=== PATIENT | male | born 1945 | race Caucasian/White ===

== ENCOUNTER 2020-12-07 10:48 | Outpatient (REF) | payer MEDICARE, SELFPAY ==
[2020-12-07 15:00] LABS: Prostate Specific Antigen 7.33 ng/mL (<0.05-4.0)
== END 2020-12-07 10:49 | disposition home or self-care (01) ==
LOC: HO.HMGCLDS 10:48
PROVIDERS: PCP Internal Medicine; Visit Provider Urology
DX: Z12.5 Encounter for screening for malignant neoplasm of prostate (principal); R97.20 Elevated prostate specific antigen [PSA]
CPT/HCPCS: 36415; 84153

== ENCOUNTER → 2020-12-11 10:42 | Outpatient (BNVA) | payer MEDICARE, SELFPAY | PROVIDERS: PCP Internal Medicine; Visit Provider Urology | DX: N40.0 Benign prostatic hyperplasia without lower urinary tract symptoms (principal); R97.20 Elevated prostate specific antigen [PSA] | CPT/HCPCS: 51798; 81002; 99212 ==

== ENCOUNTER 2021-04-04 08:26 | Outpatient (REF) | payer MEDICARE, SELFPAY ==
[2021-04-04 11:29] LABS: Hematocrit 45.7 % (42-52); Hemoglobin 14.8 g/dl (14.0-18.0); Mean Corpuscular HGB Conc 32.4 g/dl (31.0-36.0); Mean Corpuscular Hemoglobin 29.3 pg (27.0-33.0); Mean Corpuscular Volume 90.5 fL (80-98); Mean Platelet Volume 10.7 fL (9.4-12.4); Platelet Count 166 X10*3/uL (160-400); Red Blood Count 5.05 X10*6/uL (4.60-5.80); Red Cell Distribution Width 13.9 % (11.0-16.0); White Blood Count 10.3 X10*3/uL (4.8-10.8)
[2021-04-04 11:51] LABS: Alanine Aminotransferase 56 U/L (0-40); Albumin Level 4.1 g/dL (3.5-5.0); Alkaline Phosphatase 92 U/L (39-117); Anion Gap 16 (12-20); Aspartate Amino Transferase 77 U/L (5-37); Bilirubin Total 0.6 mg/dL (0.0-1.0); Blood Urea Nitrogen 25 mg/dL (9-16); Calcium 9.5 mg/dL (8.4-10.2); Carbon Dioxide 20 mmol/L (22-29); Chloride 108 mmol/L (96-108); Cholesterol 192 mg/dL; Estimated Glomerular Filt Rate > 60; Glucose Fasting 125 mg/dL (60-99); HDL Cholesterol 50 mg/dL; LDL Cholesterol Calculated 89 mg/dl; Potassium 4.7 mmol/L (3.3-5.1); Sodium 139 mmol/L (135-145); Total Protein 6.7 g/dL (6.5-8.0); Triglycerides 268 mg/dL
[2021-04-04 12:04] LABS: PSA,Total (Free>4and<10) 2.76 ng/mL (0.00-4.00)
[2021-04-04 12:13] LABS: Creatinine Urine 90.78 mg/dL; Microalbum/Creatinine Ratio Ur 37.4 ug/mg cr
[2021-04-04 12:17] LABS: Estimated Average Glucose 123 mg/dL; Hemoglobin A1c % 5.9 %
== END 2021-04-04 08:27 | disposition home or self-care (01) ==
LOC: HO.HMGCLDS 08:26
PROVIDERS: PCP Internal Medicine; Visit Provider Urology
DX: Z12.5 Encounter for screening for malignant neoplasm of prostate (principal); N13.8 Other obstructive and reflux uropathy; N40.1 Benign prostatic hyperplasia with lower urinary tract symptoms; R97.20 Elevated prostate specific antigen [PSA]; I12.9 Hypertensive chronic kidney disease with stage 1 through stage 4 chronic kidney disease, or unspecified chronic kidney disease; N18.30 Chronic kidney disease, stage 3 unspecified; M10.9 Gout, unspecified; E78.00 Pure hypercholesterolemia, unspecified
CPT/HCPCS: 36415; 80053; 80061; 82043; 83036; 84153; 85027

== ENCOUNTER → 2021-04-12 11:22 | Outpatient (BNVA) | payer MEDICARE, SELFPAY | PROVIDERS: PCP Internal Medicine; Visit Provider Urology | CPT/HCPCS: Q3014 ==

== ENCOUNTER → 2021-05-01 12:26 | Outpatient (BNVA) | payer MEDICARE, SELFPAY | PROVIDERS: Visit Provider Nurse Practitioner Family | DX: M10.9 Gout, unspecified (principal) | CPT/HCPCS: 99212 ==

== ENCOUNTER 2021-10-02 10:56 | Outpatient (REF) | payer MEDICARE, SELFPAY ==
[2021-10-02 14:27] LABS: PSA,Total (Free>4and<10) 2.88 ng/mL (0.00-4.00)
[2021-10-02 14:53] LABS: Uric Acid 5.5 mg/dL (3.4-7.0)
== END 2021-10-02 10:57 | disposition home or self-care (01) ==
LOC: HO.HMGCLDS 10:56
PROVIDERS: Nurse Practitioner Family; Visit Provider Urology
DX: Z12.5 Encounter for screening for malignant neoplasm of prostate (principal); N13.8 Other obstructive and reflux uropathy; N40.1 Benign prostatic hyperplasia with lower urinary tract symptoms; M10.9 Gout, unspecified
CPT/HCPCS: 36415; 84153; 84550

== ENCOUNTER → 2021-10-15 15:03 | Outpatient (BNVA) | payer MEDICARE, SELFPAY | PROVIDERS: PCP Internal Medicine; Visit Provider Urology | DX: R97.20 Elevated prostate specific antigen [PSA] (principal); N40.0 Benign prostatic hyperplasia without lower urinary tract symptoms | CPT/HCPCS: Q3014 ==

== ENCOUNTER 2022-04-16 08:28 | Outpatient (REF) | payer MEDICARE, SELFPAY ==
[2022-04-16 12:46] LABS: PSA,Total (Free>4and<10) 3.27 ng/mL (0.00-4.00)
== END 2022-04-16 08:29 | disposition home or self-care (01) ==
LOC: HO.HMGCLDS 08:28
PROVIDERS: PCP Internal Medicine; Visit Provider Urology
DX: N40.1 Benign prostatic hyperplasia with lower urinary tract symptoms (principal); N13.8 Other obstructive and reflux uropathy; Z12.5 Encounter for screening for malignant neoplasm of prostate
CPT/HCPCS: 36415; 84153

== ENCOUNTER → 2022-04-22 08:45 | Outpatient (BNVA) | payer MEDICARE, SELFPAY | PROVIDERS: PCP Internal Medicine; Visit Provider Urology | DX: N40.0 Benign prostatic hyperplasia without lower urinary tract symptoms (principal); R97.20 Elevated prostate specific antigen [PSA] | CPT/HCPCS: Q3014 ==

== ENCOUNTER → 2022-04-24 09:42 | Outpatient (BNVA) | payer MEDICARE, SELFPAY | PROVIDERS: PCP Internal Medicine; Visit Provider Nurse Practitioner Family | DX: M10.9 Gout, unspecified (principal) | CPT/HCPCS: 99212 ==

== ENCOUNTER 2022-07-23 08:20 | Outpatient (REF) | payer MEDICARE, SELFPAY ==
[2022-07-23 11:28] LABS: Hematocrit 48.5 % (42.0-52.0); Mean Corpuscular Hemoglobin 29.4 pg (27.0-33.0); Mean Corpuscular Volume 89.2 fL (80.0-98.0); Mean Platelet Volume 10.8 fL (9.4-12.4); Platelet Count 162 X10*3/uL (160-400); Red Blood Count 5.44 X10*6/uL (4.60-5.80); White Blood Count 10.6 X10*3/uL (4.8-10.8)
[2022-07-23 11:35] LABS: Blood Urea Nitrogen 32 mg/dL (9-16); Uric Acid 6.2 mg/dL (3.4-7.0)
[2022-07-23 11:41] LABS: Appearance Urine Clear; Color Urine Yellow; Glucose Urine UA Negative (Negative); Leukocyte Esterase Urine Negative (Negative); Nitrite Urine Negative (Negative); PH 5.5 (5.0-9.0); Urine Blood Negative (Negative); Urine Ketones Negative (Negative); Urine Protein Negative (Neg-Trace)
[2022-07-23 11:43] LABS: Alanine Aminotransferase 34 U/L (0-40); Albumin Level 4.3 g/dL (3.5-5.0); Alkaline Phosphatase 85 U/L (39-117); Anion Gap 15 (12-20); Aspartate Amino Transferase 37 U/L (5-37); Bilirubin Total 0.7 mg/dL (0.0-1.0); Blood Urea Nitrogen 31 mg/dL (9-16); Calcium 9.6 mg/dL (8.4-10.2); Carbon Dioxide 22 mmol/L (22-29); Chloride 109 mmol/L (96-108); Cholesterol 210 mg/dL; Estimated Glomerular Filt Rate 52; Glucose Fasting 126 mg/dL (60-99); HDL Cholesterol 50 mg/dL; LDL Cholesterol Calculated 116 mg/dl; Sodium 141 mmol/L (135-145); Triglycerides 221 mg/dL
[2022-07-23 11:46] LABS: Bacteria Urine None Seen (None Seen); Hyaline Casts Urine 0-2 /LPF (0-2); RBC Urine 0-2 /HPF (0-2); Squamous Epithelial Cell Urine 0-2 /HPF (0-2); WBC Urine 0-5 /HPF (0-5)
[2022-07-23 11:53] LABS: Estimated Average Glucose 128 mg/dL; Hemoglobin A1c % 6.1 %
== END 2022-07-23 08:21 | disposition home or self-care (01) ==
LOC: HO.HMGCLDS 08:20
PROVIDERS: Absent Provider Nurse Practitioner Family; PCP Internal Medicine; Visit Provider Internal Medicine
DX: M10.9 Gout, unspecified (principal); K76.0 Fatty (change of) liver, not elsewhere classified; E78.00 Pure hypercholesterolemia, unspecified
CPT/HCPCS: 36415; 80053; 80061; 81001; 83036; 84520; 84550; 85027

== ENCOUNTER 2022-09-02 09:54 | Outpatient (REF) | payer MEDICARE, SELFPAY ==
[2022-09-02 12:22] LABS: Alanine Aminotransferase 27 U/L (0-40); Albumin Level 4.1 g/dL (3.5-5.0); Alkaline Phosphatase 91 U/L (39-117); Anion Gap 14 (12-20); Aspartate Amino Transferase 35 U/L (5-37); Bilirubin Total 0.6 mg/dL (0.0-1.0); Blood Urea Nitrogen 33 mg/dL (9-16); Calcium 9.3 mg/dL (8.4-10.2); Carbon Dioxide 22 mmol/L (22-29); Chloride 107 mmol/L (96-108); Estimated Glomerular Filt Rate 46; Glucose Random 132 mg/dL (60-115); Potassium 4.7 mmol/L (3.3-5.1); Sodium 138 mmol/L (135-145); Total Protein 6.6 g/dL (6.5-8.0); Uric Acid 3.5 mg/dL (3.4-7.0)
== END 2022-09-02 09:55 | disposition home or self-care (01) ==
LOC: HO.HMGCLDS 09:54
PROVIDERS: PCP Internal Medicine; Visit Provider Nurse Practitioner Family
DX: M10.9 Gout, unspecified (principal)
CPT/HCPCS: 36415; 80053; 84550

== ENCOUNTER → 2022-09-05 09:54 | Outpatient (BNVA) | payer MEDICARE, SELFPAY | PROVIDERS: PCP Internal Medicine; Visit Provider Nurse Practitioner Family | DX: M10.9 Gout, unspecified (principal); M25.511 Pain in right shoulder; Z79.899 Other long term (current) drug therapy | CPT/HCPCS: 99212 ==

== ENCOUNTER 2022-10-13 09:21 | Outpatient (REF) | payer MEDICARE, SELFPAY ==
[2022-10-13 12:39] LABS: Prostate Specific Antigen 2.35 ng/mL (<0.05-4.0)
== END 2022-10-13 09:22 | disposition home or self-care (01) ==
LOC: HO.HMGCLDS 09:21
PROVIDERS: PCP Internal Medicine; Visit Provider Urology
DX: R97.20 Elevated prostate specific antigen [PSA] (principal); Z12.5 Encounter for screening for malignant neoplasm of prostate
CPT/HCPCS: 36415; 84153

== ENCOUNTER → 2022-10-22 09:01 | Outpatient (BNVA) | payer MEDICARE, SELFPAY | PROVIDERS: PCP Internal Medicine; Visit Provider Urology | DX: N40.0 Benign prostatic hyperplasia without lower urinary tract symptoms (principal); R97.20 Elevated prostate specific antigen [PSA] | CPT/HCPCS: Q3014 ==

== ENCOUNTER 2022-11-27 11:27 | Outpatient (REF) | payer MEDICARE, SELFPAY ==
--- NOTE | ~2022-11-27 | XR_ITS ---
EXAMINATION: XR SHOULDER, RIGHT CLINICAL INFORMATION: Right shoulder. COMPARISON: None available. TECHNIQUE: AP external rotation, Grashey, scapular Y, and axillary views of the right shoulder. FINDINGS: Mild elevation of the right humeral head most metatarsal likely reflects underlying rotator cuff pathology. Mild to moderate acromioclavicular degenerative changes. XR/XR shoulder RT min 2V IMPRESSION: Mild elevation of the right humeral head most metatarsal likely reflects underlying rotator cuff pathology. Mild to moderate acromioclavicular degenerative changes.
[2022-11-27 14:28] LABS: Blood Urea Nitrogen 28 mg/dL (9-16); Estimated Glomerular Filt Rate > 60; Uric Acid 4.2 mg/dL (3.4-7.0)
== END 2022-11-27 11:28 | disposition home or self-care (01) ==
LOC: HO.HMGCX 11:27
PROVIDERS: PCP Internal Medicine; Visit Provider Nurse Practitioner Family
DX: M10.9 Gout, unspecified (principal); M25.511 Pain in right shoulder
CPT/HCPCS: 36415; 73030; 82565; 84520; 84550

== ENCOUNTER → 2022-12-12 10:42 | Outpatient (BNVA) | payer MEDICARE, SELFPAY | PROVIDERS: PCP Internal Medicine; Visit Provider Nurse Practitioner Family | DX: M10.9 Gout, unspecified (principal); M25.511 Pain in right shoulder | CPT/HCPCS: 99212 ==

== ENCOUNTER 2023-02-17 08:13 | Outpatient (REF) | payer MEDICARE, SELFPAY ==
[2023-02-17 12:16] LABS: Estimated Average Glucose 123 mg/dL; Hemoglobin A1c % 5.9 %
[2023-02-17 12:35] LABS: Alanine Aminotransferase 29 U/L (0-40); Albumin Level 4.1 g/dL (3.5-5.0); Alkaline Phosphatase 75 U/L (39-117); Anion Gap 13 (12-20); Aspartate Amino Transferase 38 U/L (5-37); Bilirubin Total 0.7 mg/dL (0.0-1.0); Blood Urea Nitrogen 33 mg/dL (9-16); Calcium 9.7 mg/dL (8.4-10.2); Carbon Dioxide 21 mmol/L (22-29); Chloride 108 mmol/L (96-108); Cholesterol 199 mg/dL; Estimated Glomerular Filt Rate > 60; Glucose Random 122 mg/dL (60-115); HDL Cholesterol 49 mg/dL; LDL Cholesterol Calculated 104 mg/dl; Potassium 4.5 mmol/L (3.3-5.1); Sodium 137 mmol/L (135-145); Triglycerides 234 mg/dL
[2023-02-17 12:41] LABS: Blood Urea Nitrogen 33 mg/dL (9-16); Uric Acid 5.6 mg/dL (3.4-7.0)
== END 2023-02-17 08:14 | disposition home or self-care (01) ==
LOC: HO.HMGCLDS 08:13
PROVIDERS: Nurse Practitioner Family; PCP Internal Medicine; Visit Provider Internal Medicine
DX: I12.9 Hypertensive chronic kidney disease with stage 1 through stage 4 chronic kidney disease, or unspecified chronic kidney disease (principal); N18.30 Chronic kidney disease, stage 3 unspecified; M10.9 Gout, unspecified; R73.9 Hyperglycemia, unspecified
CPT/HCPCS: 36415; 80053; 80061; 83036; 84520; 84550

== ENCOUNTER 2023-02-24 13:53 | Outpatient (AMB) | payer MEDICARE, SELFPAY ==
[2023-02-24 13:54] VITALS: BP 126/78; PULSE 80; O2SAT 97; BMI 29.3
--- NOTE | 2023-02-24 13:54 | A.OFFPC_ITS ---
Vital Signs 02/24/23 13:54 Height 5 ft 10 in Weight 204 lb BMI 29.3 BP 126/78 Blood Pressure Location Lt brachial Position Sitting Pulse 80 Pulse Source Pulse Oximeter Pulse Oximetry (%) 97 Oxygen Delivery Method Room Air Intake Visit Reasons: R total shoulder replacement-03/02 Intake Note: Pt is here today for a pre op visit. Pt is having R total shoulder replacement on 03/02/[address] Mcgraw. Allergies No Known Allergies [No Known Allergies*] Allergy (Verified 02/24/23 13:56) Medication List - Last Reconciled 02/24/23 by Jodi Roland MD allopurinol 300 mg PO DAILY aspirin 81 mg PO DAILY finasteride 5 mg PO DAILY 90 days flu vac 2020 [id number](PF) 60 mcg (15 mcg x 4)/0.5 mL mL IM ibuprofen TAKE 1 TABLET BY MOUTH TWICE A DAY lisinopril 10 mg PO DAILY omega 4-khd-fex-fish oil 60-90-500 mg (Fish Oil) 1 cap PO DAILY simvastatin 40 mg PO DAILY Tobacco use date assessed: 01/08/23 Dental Screening Dental Screen Date: 02/24/23 Did you have a dental visit in the last 12 months?: Yes Did you have a dental problem in the last 6 months where you did not have access to dental care?: No Was dental information given to patient?: Patient has dentist HPI R total shoulder replacement-03/02 HPI Details Pt presents for preop R shoulder replacement surgery. HTN and hyperlipid, are stable on meds. PFSH Medical History BPH (benign prostatic hyperplasia) CKD (chronic kidney disease), stage III Fatty liver Gout Hypercholesterolemia Hypertension Melanoma Rotator cuff disorder Surgical History H/O colonoscopy History of ankle surgery History of knee surgery Melanoma of back Family History Father Cerebral aneurysm Mother No problems noted. Son No problems noted. Daughter No problems noted. Social History Housing: House Alcohol intake: current Alcohol intake frequency: a few times a week Patient Tobacco Use Status: Never used Tobacco e-Cigarette/Vaping Use: Never Used Current occupational status: retired Cognitive needs: No Hearing needs: No Vision needs: Yes Questionnaire PHQ-9 Over the last 2 weeks, how often have you been bothered by any of the following problems? 1. Little interest or pleasure in doing things: not at all 2. Feeling down, depressed, or hopeless: not at all 3. Trouble falling or staying asleep, or sleeping too much: not at all 4. Feeling tired or having little energy: not at all 5. Poor appetite or overeating: not at all 6. Feeling bad about yourself - or that you are a failure or have let yourself or your family down: not at all 7. Trouble concentrating on things, such as reading the newspaper or watching television: not at all 8. Moving or speaking so slowly that other people could have noticed. Or the opposite - being so fidgety or restless that you have been moving around a lot more than usual: not at all 9. Thoughts that you would be better off or of hurting yourself in some way: not at all Total score: 0 Depression Screening Interpretation: Negative Source: Developed by Drs. Scottie You, Kassy Wells, Tyrese Buckner and colleagues, with an educational nany from [employer]. Thrive Questionnaire Date Thrive assessed: 02/24/23 I am a: Patient What is your living situation today?: I have a steady place to live Within the past 12 months, did the food you bought not last and you didn't have the money to get more?: Never true Within the past 12 months, did you worry whether your food would run out before you got money to buy more?: Never true Do you have trouble paying for medicines?: No Do you have trouble getting transportation to medical appointments?: No Do you have trouble paying your heating and electricity bill?: No Do you have trouble taking care of your child, family member or friend?: No Do you have trouble with day-to-day activities such as bathing, preparing meals, shopping, managing finances, etc.?: No Are you currently unemployed and looking for a job?: No Are you interested in more education?: No Please select the resources that you would like help with: None Currently or been in a relationship where the following occur: no concerns reported LINDEN-7 AMB Questionnaire LINDEN-7 Date LINDEN - 7 assessed: 02/24/23 Feeling nervous, anxious, or on edge: 0 = Not at all Not being able to stop or control worryin = Not at all Worrying too much about different things: 0 = Not at all Trouble relaxin = Not at all Being so restless that it is hard to sit still: 0 = Not at all Becoming easily annoyed or irritable: 0 = Not at all Feeling afraid as if something awful might happen: 0 = Not at all Total LINDEN-7 score (0-4 normal; 5-9 mild; 10-14 moderate; 15-21 severe): 0 Source: Developed by Drs. Scottie You, Kassy Wells, Tyrese Buckner and colleagues, with an educational nany from [employer]. Review of Systems Const All systems reviewed & are unremarkable except as noted in HPI and below Reports no additional complaints Eyes Reports no additional complaints ENT Reports no additional complaints Card Reports no additional complaints Resp Reports no additional complaints GI Reports no additional complaints Reports no additional complaints Physical exam (Primary Care) Vital Signs: Last Vital Signs Pulse 80 02/24/23 13:54 BP 126/78 02/24/23 13:54 Pulse Ox 97 02/24/23 13:54 Oxygen Delivery Method Room Air 02/24/23 13:54 BMI result Body Mass Index 29.3 Tobacco/Smoking Status: Tobacco use Status Tobacco use date assessed 01/08/23 02/24/23 14:02 Patient Tobacco Use Status Never used Tobacco 02/24/23 14:02 e-Cigarette/Vaping Use Never Used 02/24/23 14:02 PHQ-9: PHQ-9 Score PHQ-9: Total score 0 02/24/23 14:12 Depression Screening Interpretation: Negative Thrive Assessment: Date of Thrive Assessment Date Thrive assessed 02/24/23 02/24/23 14:12 Currently or been in a relationship where the following occur: no concerns reported Const General: no acute distress HENMT Head: Yes normal to inspection Ears: hearing grossly normal bilaterally Face and sinus: Yes normal facial exam Mouth: Normal oral and palatal mucosa present Throat: Yes posterior oropharynx normal Eyes General: appearance normal, both eyes and all related structures Neck Neck: Yes no lymphadenopathy Resp Effort & Inspection: normal respiratory effort Auscultation: clear to auscultation bilaterally Cardio Rhythm: regular rhythm Heart sounds: S1 normal heart sound present and S2 normal heart sound present GI Inspection: Yes normal to inspection Palpation (GI): Soft to palpation Percussion: Yes normal to percussion Auscultation: normal bowel sounds Assessment and Plan Assessment & Plan (1) 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: Code(s): M19.111 - Post-traumatic osteoarthritis, right shoulder; S46.001S - Unspecified injury of muscle(s) and tendon(s) of the rotator cuff of right shoulder, sequela Plan: pt is medically cleared for surgery (2) Hypertension: Code(s): I10 - Essential (primary) hypertension Plan: Continue lisinopril, EKG showed normal sinus rhythm no ST-T changes (3) Hypercholesterolemia: Code(s): E78.00 - Pure hypercholesterolemia, unspecified Plan: Continue statin (4) Hyperglycemia: Comment: A1C 5.9 02/22 Code(s): R73.9 - Hyperglycemia, unspecified Plan: Continue ADA diet regular exercise, and weight lost. Follow-up in July with fasting labs before Orders: Orders Comprehensive [place]. Panel Fast 5 Months E78.00 - Pure hypercholesterolemia, unspecified, I10 - Essential (primary) hypertension, R73.9 - Hyperglycemia, unspecified Hemoglobin A1c 5 Months E78.00 - Pure hypercholesterolemia, unspecified, I10 - Essential (primary) hypertension, R73.9 - Hyperglycemia, unspecified Lipid Panel 5 Months E78.00 - Pure hypercholesterolemia, unspecified, I10 - Essential (primary) hypertension, R73.9 - Hyperglycemia, unspecified Microalbumin, Random (w Creat) 5 Months E78.00 - Pure hypercholesterolemia, unspecified, I10 - Essential (primary) hypertension, R73.9 - Hyperglycemia, unspecified Complete Blood Count Auto Diff 5 Months E78.00 - Pure hypercholesterolemia, unspecified, I10 - Essential (primary) hypertension, R73.9 - Hyperglycemia, unspecified Coding Level of Care Code Est Pt Level 4 (45774) Diagnoses 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
== END 2023-02-24 14:43 | disposition home or self-care (01) ==
PROVIDERS: PCP Internal Medicine; Visit Provider Internal Medicine
DX: M19.111 Post-traumatic osteoarthritis, right shoulder (principal); S46.001S Unspecified injury of muscle(s) and tendon(s) of the rotator cuff of right shoulder, sequela; I10 Essential (primary) hypertension; E78.00 Pure hypercholesterolemia, unspecified; R73.9 Hyperglycemia, unspecified
CPT/HCPCS: 99214

== ENCOUNTER 2023-04-20 10:40 | Outpatient (REF) | payer MEDICARE, SELFPAY ==
[2023-04-20 14:43] LABS: Prostate Specific Antigen 2.42 ng/mL (<0.05-4.0)
== END 2023-04-20 10:41 | disposition home or self-care (01) ==
LOC: HO.HMGCLDS 10:40
PROVIDERS: PCP Internal Medicine; Visit Provider Urology
DX: Z12.5 Encounter for screening for malignant neoplasm of prostate (principal); N40.0 Benign prostatic hyperplasia without lower urinary tract symptoms
CPT/HCPCS: 36415; 84153

== ENCOUNTER 2023-04-28 11:10 | Outpatient (AMB) | payer MEDICARE, SELFPAY ==
--- NOTE | 2023-04-28 11:12 | MHC.OFFVIS ---
Intake Intake Visit Reasons: 6M PSA(set) Intake Note: Patient is Present for Follow Up PSA Urology Medication: Finasteride Antibiotic Allergies: None Blood Thinners: Aspirin Pharmacy: [facility] Allergies No Known Allergies [No Known Allergies*] Allergy (Verified 04/28/23 11:13) Medication List - Last Reconciled 04/28/23 by Stuart Prather MD allopurinol 300 mg PO DAILY aspirin 81 mg PO DAILY finasteride 5 mg PO DAILY 90 days flu vac 2020 [id number](PF) 60 mcg (15 mcg x 4)/0.5 mL mL IM ibuprofen TAKE 1 TABLET BY MOUTH TWICE A DAY lisinopril 10 mg PO DAILY omega 3-ket-rez-fish oil 60-90-500 mg (Fish Oil) 1 cap PO DAILY simvastatin 40 mg PO DAILY HPI HPI Comments History of Present Illness Details Scottie GREEN is a very pleasant male. He is a patient of Dr. Roland. He is seen for the following urologic conditions. - BPH - elevated PSA Telemedicine evaluation 15 minute consultation Doximity morris Video attempted PSA stabilized at 2.4 Continue with finasteride Six month follow-up Prior biopsy 2004 Large prostate on exam Elevated PSA/Abnormal JOSIAS: He presents for Further evaluation for elevated PSA Large prostate on exam Has had elevated PSA he says for around 20 years. Current management is observation. Laboratory investigations include a total PSA evaluation for September 2014 4.8, January 2015 3.6, October 2016 5.6, 05/19 4.8, 11/18 4.6, 11/19 4.7, 11/20 5.6, 12/21 7.3, 04/23 2.7, 10/22 2.8, 04/24 3.3, 10/23 2.4, 04/25 2/4 Individualized Prostate Cancer Risk Calculator 5-10% high risk, Would like to continue with observation and understands and accepts the risks of a possible delay in diagnosis. Symptoms include incomplete emptying, intermittency, and are stable. Therapeutic plan will be - PSA for 6 months [facility] Medical History Fatty liver BPH (benign prostatic hyperplasia) Gout Rotator cuff disorder CKD (chronic kidney disease), stage III Melanoma Hypercholesterolemia Hypertension Surgical History H/O colonoscopy Melanoma of back History of ankle surgery History of knee surgery Family History Father Cerebral aneurysm Mother No problems noted. Son No problems noted. Daughter No problems noted. Social History Housing: House Alcohol intake: current Alcohol intake frequency: a few times a week Patient Tobacco Use Status: Never used Tobacco e-Cigarette/Vaping Use: Never Used Current occupational status: retired Cognitive needs: No Hearing needs: No Vision needs: Yes Review of Systems Const All systems reviewed & are unremarkable except as noted in HPI and below Reports no additional complaints Resp Reports no additional complaints GI Reports no additional complaints Reports as per HPI Musc Reports no additional complaints Physical Exam Telemedicine evaluation Appropriate responses Regular breathing rate and rhythm HEENT Head: Yes normal to inspection Ears: hearing grossly normal bilaterally Eyes General: appearance normal, both eyes and all related structures Neck Neck: Yes normal visual inspection Chest Chest palpation & inspection: normal inspection of the chest Resp Effort & Inspection: normal respiratory effort and able to speak in complete sentences Assessment & Plan Assessment & Plan (1) BPH (benign prostatic hyperplasia): Comment: Dr. Prather Code(s): N40.0 - Benign prostatic hyperplasia without lower urinary tract symptoms Qualifiers: Lower urinary tract symptom presence: symptoms present Lower urinary tract symptom detail: weak urinary stream Qualified Code(s): N40.1 - Benign prostatic hyperplasia with lower urinary tract symptoms; R39.12 - Poor urinary stream (2) Elevated PSA: Code(s): R97.20 - Elevated prostate specific antigen [PSA] Plan Continued effective emptying PSA remaining low Orders: Orders Prostate Specific Antigen 6 Months N40.0 - Benign prostatic hyperplasia without lower urinary tract symptoms Medications: Refilled finasteride 5 mg PO DAILY 90 tabs 1RF 90 days N13.8 - Other obstructive and reflux uropathy, N40.1 - Benign prostatic hyperplasia with lower urinary tract symptoms, R33.9 - Retention of urine, unspecified, R97.20 - Elevated prostate specific antigen [PSA] Patient Instructions: Imaging studies, laboratory and physical exam results were discussed and reviewed in detail. No major barriers to patient understanding were identified. An opportunity to ask questions regarding the treatment plan was provided. All questions were answered. The patient expressed understanding and agreement with the above treatment plan. The patient is aware they should contact our office by phone for worsening of their current condition or the appearance of new urologic symptoms. Compliance is encouraged with any medications and followup testing that is ordered. It is a privilege to participate in the urologic care of your patient. If you have any questions or concerns regarding treatment for the above conditions, or other urologic issues, please do not hesitate to contact me. The office telephone contact is [phone]. This note is constructed using voice recognition software. While every effort has been made to ensure accuracy software developer manager errors may have been included. Yours sincerely, Dr Stuart Prather MD, D[facility] - Urology Providers of Expert, Compassionate Care for the Genitourinary System Telehealth Telehealth Location of provider rendering services: practice address Location of patient: address on file Patient Identification confirmed using: Name, : Yes Telehealth method: video Patient verbally consented to treatment: Yes Patient verbally consented to billing insurance company: Yes Patient informed of any privacy concerns related to visit: Yes Coding Level of Care Code Tele Est Pt Level 3 (86123) Diagnoses Benign prostatic hyperplasia with weak urinary stream N40.1; R39.12 Lower urinary tract symptom presence: symptoms present Lower urinary tract symptom detail: weak urinary stream Elevated PSA R97.20
== END 2023-04-28 12:04 | disposition home or self-care (01) ==
LOC: HO.HUSH 11:10
PROVIDERS: PCP Internal Medicine; Visit Provider Urology
DX: N40.1 Benign prostatic hyperplasia with lower urinary tract symptoms (principal); R39.12 Poor urinary stream; R97.20 Elevated prostate specific antigen [PSA]
CPT/HCPCS: 99213

== ENCOUNTER → 2023-04-28 11:10 | Outpatient (BNVA) | payer MEDICARE, SELFPAY | PROVIDERS: PCP Internal Medicine; Visit Provider Urology ==

== ENCOUNTER 2023-05-29 15:47 | Outpatient (AMB) | payer MEDICARE, SELFPAY ==
[2023-05-29 15:58] VITALS: BP 114/66; PULSE 87; TEMP 36.5; O2SAT 95; BMI 29.0
--- NOTE | 2023-05-29 15:58 | MHC.OFFVIS ---
Intake Vital Signs 05/29/23 15:58 Height 5 ft 10 in Weight 202 lb 2.622 oz BMI 29.0 BP 114/66 Blood Pressure Location Rt brachial Position Sitting Pulse 87 Pulse Source Pulse Oximeter Temp 97.7 F Temp Source Skin Pulse Oximetry (%) 95 Intake Visit Reasons: gout Intake Note: Pt last seen by Irina 12/12/22, presents today for follow up and lab results. He was referred to [facility] for shoulder pain. S/P rotator cuff surgery, records in chart. No gout in the last 15-20 years, however reports numbing in right foot s/p ankle fusion many years ago Manager Sas Required: No Accompanied by: Self / Same As Patient Allergies No Known Allergies [No Known Allergies*] Allergy (Verified 05/29/23 16:01) Medication List - Last Reconciled 05/29/23 by Shanice Ortiz MD allopurinol 300 mg PO DAILY aspirin 81 mg PO DAILY finasteride 5 mg PO DAILY 90 days flu vac 2020 [id number](PF) 60 mcg (15 mcg x 4)/0.5 mL mL IM ibuprofen TAKE 1 TABLET BY MOUTH TWICE A DAY lisinopril 10 mg PO DAILY omega 1-acg-gwn-fish oil 60-90-500 mg (Fish Oil) 1 cap PO DAILY simvastatin 40 mg PO DAILY HPI HPI Comments History of Present Illness Details 77-year-old male with gout returns for follow-up. He was last seen by Yin Aguila . On allopurinol 300 mg daily. No gout flares for 15 years. Patient states that he had right shoulder arthroplasty a few months ago. States that his right shoulder is much better overall. States that since his right ankle arthrodesis in 2015 he has had almost no sensation in his right ankle and foot. This does interfere with his gait. [facility] Medical History Fatty liver BPH (benign prostatic hyperplasia) Gout Rotator cuff disorder CKD (chronic kidney disease), stage III Melanoma Hypercholesterolemia Hypertension Surgical History H/O colonoscopy Melanoma of back History of ankle surgery History of knee surgery Family History Father Cerebral aneurysm Mother No problems noted. Son No problems noted. Daughter No problems noted. Social History Household Members: Spouse Housing: House Alcohol intake: current Alcohol intake frequency: a few times a week Patient Tobacco Use Status: Never used Tobacco e-Cigarette/Vaping Use: Never Used Current occupational status: retired Cognitive needs: No Hearing needs: No Vision needs: Yes Review of Systems Musc Reports numbness Neuro Reports numbness Physical Exam Vital Signs: Last Vital Signs Temp 97.7 F 05/29/23 15:58 Pulse 87 05/29/23 15:58 BP 114/66 05/29/23 15:58 Pulse Ox 95 05/29/23 15:58 BMI result Body Mass Index 29.0 Const General: cooperative, healthy appearing and comfortable Nutritional Appearance: overweight Orientation/consciousness: patient oriented x3 Limitations: no limitations HEENT Head: Yes normocephalic and Yes atraumatic Resp Effort & Inspection: normal respiratory effort and able to speak in complete sentences Skin General skin exam: no rashes or lesions noted Neuro Other: Significantly reduced sensation to right ankle and right foot. 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 On allopurinol 300 mg daily. Has not had any gout flares in more than 15 years. Most recent uric acid level 5.6 which is at target. Continue allopurinol 300 mg daily. Refill Labs before next visit in 6 months (2) Peripheral neuropathy: Code(s): G62.9 - Polyneuropathy, unspecified Qualifiers: Peripheral neuropathy type: polyneuropathy, other Qualified Code(s): G62.89 - Other specified polyneuropathies Plan: Significant right ankle and foot numbness since his right ankle arthrodesis in 2016. Will check an EMG/NCV of lower extremities to further evaluate. Plan I spent 26 minutes reviewing patient's chart, evaluating patient, ordering diagnostic workup, counseling patient and documenting in the chart Orders: Orders Basic Metabolic Panel 6 Months M10.9 - Gout, unspecified Uric Acid 6 Months M10.9 - Gout, unspecified NE electromyogram (EMG) Today G62.9 - Polyneuropathy, unspecified Medications: Refilled allopurinol 300 mg PO DAILY 90 tabs 1RF Coding Level of Care Code Est Pt Level 4 (59139) Diagnoses Idiopathic chronic gout of multiple sites with tophus M1A.09X1 Gout site: multiple sites Gout etiology: idiopathic Chronicity: chronic Presence of tophus: with tophus Other polyneuropathy G62.89 Peripheral neuropathy type: polyneuropathy, other
== END 2023-05-29 16:34 | disposition home or self-care (01) ==
PROVIDERS: PCP Internal Medicine; Visit Provider Student in an Organized Health Care Education/Training Program
DX: M1A.09X1 Idiopathic chronic gout, multiple sites, with tophus (tophi) (principal); G62.89 Other specified polyneuropathies
CPT/HCPCS: 99214

== ENCOUNTER → 2023-05-29 15:47 | Outpatient (BNVA) | payer MEDICARE, SELFPAY | PROVIDERS: PCP Internal Medicine; Visit Provider Student in an Organized Health Care Education/Training Program | DX: M1A.09X1 Idiopathic chronic gout, multiple sites, with tophus (tophi) (principal); G62.89 Other specified polyneuropathies | CPT/HCPCS: 99212 ==

== ENCOUNTER 2023-07-08 15:21 | Outpatient (REF) | payer MEDICARE, SELFPAY ==
--- NOTE | 2023-07-08 15:24 | EMG_ITS ---
Chief complaint: History of right ankle fusion 2016 and that area as been numb since then. Worsening of numbness this year to the point that he cannot walk, feels padding on the bottom of feet. Denies back pain. Reason for referral: Evaluate for neuropathy Referred by: Dr. Ortiz Procedure done: Bilateral lower extremity NCS/EMG Precautions and/or limitations: None The limb temperature was monitored continuously and remained between 32-36 degrees C during the performance of the NCS. Nerve Conduction Studies Anti Sensory Summary Table ?Stim Site NR Onset (ms) Norm Onset (ms) Peak (ms) Norm Peak (ms) O-P Amp (?V) Norm O-P Amp Site1 Site2 Delta-0 (ms) Dist (cm) Karlo (m/s) Norm Karlo (m/s) Left Sural Anti Sensory (Lat Mall) Calf NR <4.0 >5.0 Calf Lat Mall 14.0 Right Sural Anti Sensory (Lat Mall) Calf NR <4.0 >5.0 Calf Lat Mall 14.0 Motor Summary Table ?Stim Site NR Onset (ms) Norm Onset (ms) O-P Amp (mV) Norm O-P Amp iAmp (mV) Amp (1st) (%) Site1 Site2 Delta-0 (ms) Dist (cm) Karlo (m/s) Norm Karlo (m/s) Right Peroneal Motor (Ext Dig Brev) Ankle ? 12.3 <4.0 1.0 >2.5 1.0 100.0 Ankle Ext Dig Brev 12.3 0.0 B Fib ? 20.7 0.5 0.9 50.0 B Fib Ankle 8.4 30.0 36 >40 Poplt ? 22.7 0.3 0.4 30.0 Poplt B Fib 2.0 6.0 30 >40 Left Tibial Motor (Abd Gan Brev) Ankle ? 9.0 <5 0.4 >2.5 0.7 100.0 Ankle Abd Gan Brev 9.0 0.0 Knee ? 21.9 0.3 0.5 75.0 Knee Ankle 12.9 39.0 30 >40 Right Tibial Motor (Abd Gan Brev) Ankle ? 6.8 <5 0.7 >2.5 1.0 100.0 Ankle Abd Gan Brev 6.8 0.0 Knee NR Knee Ankle 0.0 >40 EMG ?Side Muscle Nerve Root Ins Act Fibs Psw Amp Dur Poly Recrt Int Pat Comment Right AbdHallucis MedPlantar S1-2 Nml Nml Nml Nml Nml 0 Nml Complete Right AntTibialis Dp Br Peron L4-5 Nml Nml Nml Nml Nml 0 Nml Complete Right PostTibialis Tibial L5, S1 Nml Nml Nml Nml Nml 0 Nml Complete Right MedGastroc Tibial S1-2 Nml Nml Nml Nml Nml 0 Nml Complete Right VastusMed Femoral L2-4 Nml Nml Nml Nml Nml 0 Nml Complete Left AbdHallucis MedPlantar S1-2 Nml Nml Nml Nml Nml 0 Nml Complete Left AntTibialis Dp Br Peron L4-5 Nml Nml Nml Incr Incr 0 Nml Complete Left PostTibialis Tibial L5, S1 Nml Nml Nml Nml Nml 0 Nml Complete Left MedGastroc Tibial S1-2 Nml Nml Nml Nml Nml 0 Nml Complete Left VastusMed Femoral L2-4 Nml Nml Nml Nml Nml 0 Nml Complete Paraspinal EMG ?Side Muscle Nerve Root Ins Act Fibs Psw Comment Right Lumbar Upper Rami Nml Nml Nml Right Lumbar Mid Rami Nml Nml Nml Right Lumbar Lower Rami Nml Nml Nml Left Lumbar Upper Rami Nml Nml Nml Left Lumbar Mid Rami Nml Nml Nml Left Lumbar Lower Rami Incr 1+ 1+ FINDINGS: Right peroneal showed very small amplitudes, prolonged distal latency, and slowed conduction velocity. Right tibial nerve showed very small amplitude distally and absent proximally. Left tibial nerve showed small amplitude as well.. Bilateral sural nerves absent. Concentric needle EMG was performed in selected muscles of the bilateral lower extremity and lumbar paraspinals. Study revealed Signs of electric abnormalities as shown in the table below. Left TA showed increased amplitude and duration. Left lumbar paraspinals showed increased insertional activity, PSWs and fibrillations. IMPRESSION: 1. This is an abnormal study. 2. There is electrodiagnostic findings suggestive for distal sensorimotor polyneuropathy, axonal features. 3. There is also electrodiagnostic findings suggestive for left subacute/chronic L5-S1 radiculopathy. CLINICAL COMMENT: Further clinical correlation recommended. Thank you for your kind referral. Bhavna Mills MD, D[facility]K Board Certified, [place] [employer] and [employer] (ABPMR) Board Certified, [place] Board of Electrodiagnostic [employer] (ABEM) CODIN [id number] x 2 MTDD
== END 2023-07-08 15:22 | disposition home or self-care (01) ==
LOC: HO.NEURO 15:21
PROVIDERS: PCP Internal Medicine; Visit Provider Student in an Organized Health Care Education/Training Program
DX: G57.51 Tarsal tunnel syndrome, right lower limb (principal); G62.9 Polyneuropathy, unspecified
CPT/HCPCS: 95886; 95909

== ENCOUNTER → 2023-07-08 15:24 | Outpatient (BNV) | payer MEDICARE, SELFPAY | PROVIDERS: PCP Internal Medicine; Visit Provider Physical Medicine & Rehabilitation | DX: G62.89 Other specified polyneuropathies (principal) | CPT/HCPCS: 95886; 95909 ==

== ENCOUNTER 2023-10-06 09:54 | Outpatient (AMB) | payer MEDICARE, SELFPAY ==
--- NOTE | 2023-10-06 10:02 | MHC.OFFVIS ---
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 Allergies No Known Allergies [No Known Allergies*] Allergy (Verified 10/06/23 10:07) HPI HPI Comments History of Present Illness Details 78 y/o male patient presents for new in-person for right foot numbness. Pt reports he had ankle fusion, and did operation in 2016. Pt also reports he had nerve block on his right knee and has numbness form ankle to foot since the nerve block done. Has mild numbness on her left foot, but not bad as his right one. Pt reports his toes get tingles at night. He can't walk with barefoot, he can lose balance without sleeper due to the numbness. He walks 1.5 miles a day. He drinks a bottle of beer every night. Pt had NCS/EMG of bilateral lower extremities done. 1. This is an abnormal study. 2. There is electrodiagnostic findings suggestive for distal sensorimotor polyneuropathy, axonal features. 3. There is also electrodiagnostic findings suggestive for left subacute/chronic L5-S1 radiculopathy. [facility] Medical History Fatty liver BPH (benign prostatic hyperplasia) Gout Rotator cuff disorder CKD (chronic kidney disease), stage III Melanoma Hypercholesterolemia Hypertension Surgical History H/O colonoscopy Melanoma of back History of ankle surgery History of knee surgery Family History Father Cerebral aneurysm Mother No problems noted. Son No problems noted. Daughter No problems noted. Social History Household Members: Spouse Housing: House Alcohol intake: current Alcohol intake frequency: a few times a week Patient Tobacco Use Status: Never used Tobacco e-Cigarette/Vaping Use: Never Used Current occupational status: retired Cognitive needs: No Hearing needs: No Vision needs: Yes Review of Systems Const All systems reviewed & are unremarkable except as noted in HPI and below Physical Exam Vital Signs: Last Vital Signs Pulse 68 10/06/23 10:10 BP 134/80 10/06/23 10:10 Pulse Ox 96 10/06/23 10:10 Oxygen Delivery Method Room Air 10/06/23 10:10 BMI result Body Mass Index 29.7 Const General: cooperative Nutritional Appearance: overweight Orientation/consciousness: patient oriented x3 Neck Neck: Yes full ROM and Yes supple Resp Effort & Inspection: normal respiratory effort and able to speak in complete sentences Neuro General: patient oriented x3, gait normal and moves all extremities Cranial nerves: Yes CN's II-XII intact bilaterally Cognition (Neuro): normal cognition Gait exam (Neuro): Normal gait present Motor exam (neuro): 5/5 motor strength present throughout Deep tendon reflexes (DTR's): Right patellar reflex intensity grade: 2+ and Left patellar reflex intensity grade: 2+ Psych Appearance: grossly normal Mental Status: mental status grossly normal Speech and movement: Normal speech and movement present Affect: normal affect Attitude: cooperative Assessment & Plan Assessment & Plan (1) Peripheral neuropathy: Code(s): G62.9 - Polyneuropathy, unspecified Qualifiers: Peripheral neuropathy type: polyneuropathy, other Qualified Code(s): G62.89 - Other specified polyneuropathies Plan Pt was evaluated and discussed the plan of care with Dr. Dennis. Will check labs for reversible causes of neuropathy. Advised patient to try alpha lipoic acid 600 mg daily. Advised patient to reduce the alcohol intake. Orders: Orders Vitamin B12 and Folate 10/06/23 G62.9 - Polyneuropathy, unspecified TSH reflex Free T4 10/06/23 G62.9 - Polyneuropathy, unspecified Medications: New alpha lipoic acid 600 mg PO DAILY 30 caps 6RF 30 days Coding Level of Care Code New Pt Level 3 (02784) Diagnoses Other polyneuropathy G62.89 Peripheral neuropathy type: polyneuropathy, other
[2023-10-06 10:10] VITALS: BP 134/80; PULSE 68; O2SAT 96; BMI 29.7
== END 2023-10-06 10:42 | disposition home or self-care (01) ==
PROVIDERS: PCP Internal Medicine; Visit Provider Nurse Practitioner Family
DX: G62.89 Other specified polyneuropathies (principal)
CPT/HCPCS: 99203

== ENCOUNTER → 2023-10-06 09:54 | Outpatient (BNVA) | payer MEDICARE, SELFPAY | PROVIDERS: PCP Internal Medicine; Visit Provider Nurse Practitioner Family | DX: G62.89 Other specified polyneuropathies (principal) | CPT/HCPCS: 99202 ==

== ENCOUNTER 2023-10-06 10:43 | Outpatient (REF) | payer MEDICARE, SELFPAY ==
[2023-10-06 14:28] LABS: Prostate Specific Antigen 1.88 ng/mL (<0.05-4.0); TSH reflex Free T4 4.29 uIU/mL (0.32-4.0)
[2023-10-06 17:25] LABS: Free T4 (Free Thyroxine) 0.76 ng/dL (0.71-1.85)
[2023-10-07 11:54] LABS: Folate 11.8 ng/mL (> or = 4.0); Vitamin B12 561 pg/mL (200-900)
== END 2023-10-06 10:44 | disposition home or self-care (01) ==
LOC: HO.HKASLDS 10:43
PROVIDERS: Nurse Practitioner Family; Urology; Visit Provider Internal Medicine Nephrology
DX: Z12.5 Encounter for screening for malignant neoplasm of prostate (principal); G62.9 Polyneuropathy, unspecified; N40.0 Benign prostatic hyperplasia without lower urinary tract symptoms
CPT/HCPCS: 36415; 82607; 82746; 84153; 84439; 84443

== ENCOUNTER 2023-10-28 08:52 | Outpatient (AMB) | payer MEDICARE, SELFPAY ==
--- NOTE | 2023-10-28 08:52 | A.OFFVIS_ITS ---
Intake Intake Visit Reasons: 6M PSA(set) Intake Note: Patient presents today for a follow up on PSA Meds- Finasteride Allergies to Antibiotic- No Known Allergies Blood thinner: Aspirin Flue Cleaner Required: No Allergies No Known Allergies [No Known Allergies*] Allergy (Verified 10/28/23 08:53) HPI HPI Comments History of Present Illness Details Scottie GREEN is a very pleasant male. He is a patient of Dr. Roland. He is seen for the following urologic conditions. - BPH - elevated PSA Telemedicine evaluation 15 minute consultation [employer] morris Video attempted PSA continued to fall 1.8 Continue with finasteride Six month follow-up Prior biopsy 2004 Large prostate on exam Elevated PSA/Abnormal JOSIAS: He presents for Further evaluation for elevated PSA Large prostate on exam Has had elevated PSA he says for around 20 years. Current management is observation. Laboratory investigations include a total PSA evaluation for September 2014 4.8, January 2015 3.6, October 2016 5.6, 05/19 4.8, 11/18 4.6, 11/19 4.7, 11/20 5.6, 12/21 7.3, 04/23 2.7, 10/22 2.8, 04/24 3.3, 10/23 2.4, 04/25 2/4, 10/24 1.8 Individualized Prostate Cancer Risk Calculator 5-10% high risk, Would like to continue with observation and understands and accepts the risks of a possible delay in diagnosis. Symptoms include incomplete emptying, intermittency, and are stable. Therapeutic plan will be - PSA for 6 months [facility] Medical History Fatty liver BPH (benign prostatic hyperplasia) Gout Rotator cuff disorder CKD (chronic kidney disease), stage III Melanoma Hypercholesterolemia Hypertension Surgical History H/O colonoscopy Melanoma of back History of ankle surgery History of knee surgery Family History Father Cerebral aneurysm Mother No problems noted. Son No problems noted. Daughter No problems noted. Social History Household Members: Spouse Housing: House Alcohol intake: current Alcohol intake frequency: a few times a week Patient Tobacco Use Status: Never used Tobacco e-Cigarette/Vaping Use: Never Used Current occupational status: retired Cognitive needs: No Hearing needs: No Vision needs: Yes Review of Systems Const All systems reviewed & are unremarkable except as noted in HPI and below Reports no additional complaints Resp Reports no additional complaints GI Reports no additional complaints Reports as per HPI Musc Reports no additional complaints Physical Exam Telemedicine evaluation Appropriate responses Regular breathing rate and rhythm HEENT Head: Yes normal to inspection Ears: hearing grossly normal bilaterally Eyes General: appearance normal, both eyes and all related structures Neck Neck: Yes normal visual inspection Chest Chest palpation & inspection: normal inspection of the chest Resp Effort & Inspection: normal respiratory effort and able to speak in complete sentences Assessment & Plan Assessment & Plan (1) BPH (benign prostatic hyperplasia): Comment: Dr. Prather Code(s): N40.0 - Benign prostatic hyperplasia without lower urinary tract symptoms Qualifiers: Lower urinary tract symptom presence: symptoms present Lower urinary tract symptom detail: weak urinary stream Qualified Code(s): N40.1 - Benign prostatic hyperplasia with lower urinary tract symptoms; R39.12 - Poor urinary stream (2) Elevated PSA: Code(s): R97.20 - Elevated prostate specific antigen [PSA] Plan 6m f/u psa Orders: Orders Prostate Specific Antigen 6 Months N40.1 - Benign prostatic hyperplasia with lower urinary tract symptoms, R39.12 - Poor urinary stream Medications: Refilled finasteride 5 mg PO DAILY 90 days 90 tabs 1RF N13.8 - Other obstructive and reflux uropathy, N40.1 - Benign prostatic hyperplasia with lower urinary tract symptoms, R33.9 - Retention of urine, unspecified, R97.20 - Elevated prostate specific antigen [PSA] Patient Instructions: Imaging studies, laboratory and physical exam results were discussed and reviewed in detail. No major barriers to patient understanding were identified. An opportunity to ask questions regarding the treatment plan was provided. All questions were answered. The patient expressed understanding and agreement with the above treatment plan. The patient is aware they should contact our office by phone for worsening of their current condition or the appearance of new urologic symptoms. Compliance is encouraged with any medications and followup testing that is ordered. It is a privilege to participate in the urologic care of your patient. If you have any questions or concerns regarding treatment for the above conditions, or other urologic issues, please do not hesitate to contact me. The office telephone contact is [phone]. This note is constructed using voice recognition software. While every effort has been made to ensure accuracy wall crane operator errors may have been included. Yours sincerely, Dr Stuart Prather MD, [facility] - Urology Providers of Expert, Compassionate Care for the Genitourinary System Telehealth Telehealth Location of provider rendering services: practice address Location of patient: address on file Patient Identification confirmed using: Name, : Yes Telehealth method: video Patient verbally consented to treatment: Yes Patient verbally consented to billing insurance company: Yes Patient informed of any privacy concerns related to visit: Yes Coding Level of Care Code Tele Est Pt Level 3 (30922) Diagnoses Benign prostatic hyperplasia with weak urinary stream N40.1; R39.12 Lower urinary tract symptom presence: symptoms present Lower urinary tract symptom detail: weak urinary stream Elevated PSA R97.20
== END 2023-10-28 10:46 | disposition home or self-care (01) ==
LOC: HO.HUSH 08:52
PROVIDERS: PCP Internal Medicine; Visit Provider Urology
DX: N40.1 Benign prostatic hyperplasia with lower urinary tract symptoms (principal); R39.12 Poor urinary stream; R97.20 Elevated prostate specific antigen [PSA]
CPT/HCPCS: 99213

== ENCOUNTER → 2023-10-28 08:52 | Outpatient (BNVA) | payer MEDICARE, SELFPAY | PROVIDERS: PCP Internal Medicine; Visit Provider Urology ==

== ENCOUNTER 2024-01-06 10:35 | Outpatient (REF) | payer MEDICARE, SELFPAY ==
[2024-01-06 14:36] LABS: Anion Gap 13 (12-20); Blood Urea Nitrogen 35 mg/dL (9-16); Calcium 9.5 mg/dL (8.4-10.2); Carbon Dioxide 21 mmol/L (22-29); Chloride 109 mmol/L (96-108); Estimated Glomerular Filt Rate 51; Glucose Random 154 mg/dL (60-115); Potassium 4.7 mmol/L (3.3-5.1); Sodium 138 mmol/L (135-145); Uric Acid 4.9 mg/dL (3.4-7.0)
== END 2024-01-06 10:36 | disposition home or self-care (01) ==
LOC: HO.HMGCLDS 10:35
PROVIDERS: PCP Internal Medicine; Visit Provider Student in an Organized Health Care Education/Training Program
DX: M10.9 Gout, unspecified (principal)
CPT/HCPCS: 36415; 80048; 84550

== ENCOUNTER 2024-01-14 13:54 | Outpatient (AMB) | payer MEDICARE, SELFPAY ==
[2024-01-14 13:56] VITALS: BP 118/64; PULSE 96; O2SAT 96; BMI 29.7
--- NOTE | 2024-01-14 13:56 | MHC.OFFVIS ---
Vital Signs 01/14/24 13:56 Height 5 ft 10 in Weight 206 lb 12.697 oz BMI 29.7 BP 118/64 Blood Pressure Location Rt brachial Position Sitting Pulse 96 Pulse Source Pulse Oximeter Pulse Oximetry (%) 96 Oxygen Delivery Method Room Air Intake Visit Reasons: Gout Intake Note: Patient last seen 05/29/23 presents today for follow up and test results. Disaster Recovery Consultant Required: No Accompanied by: Self / Same As Patient Allergies No Known Allergies [No Known Allergies*] Allergy (Verified 01/14/24 14:03) Medication List - Last Reconciled 01/14/24 by Shanice Ortiz MD allopurinol 300 mg PO DAILY alpha lipoic acid 600 mg PO DAILY 30 days aspirin 81 mg PO DAILY finasteride 5 mg PO DAILY 90 days flu vac 2020 [id number](PF) 60 mcg (15 mcg x 4)/0.5 mL mL IM ibuprofen TAKE 1 TABLET BY MOUTH TWICE A DAY lisinopril 10 mg PO DAILY omega [id number] oil 60-90-500 mg (Fish Oil) 1 cap PO DAILY simvastatin 40 mg PO DAILY HPI Comments Details: 78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 He was last seen 05/2023. On allopurinol 300 mg daily. No gout flares for 16 years. States that he is doing reasonably well overall. He was evaluated by neurologist for peripheral neuropathy and started on alpha lipoic acid. He states that it does help with shooting pains that he gets at night. He was quite busy with his who recently had surgery for stomach cancer. She is now discharged home [facility] Medical History Fatty liver BPH (benign prostatic hyperplasia) Gout Rotator cuff disorder CKD (chronic kidney disease), stage III Melanoma Hypercholesterolemia Hypertension Surgical History H/O colonoscopy Melanoma of back History of ankle surgery History of knee surgery Family History Father Cerebral aneurysm Mother No problems noted. Son No problems noted. Daughter No problems noted. Social History Household Members: Spouse Housing: House Alcohol intake: current Alcohol intake frequency: a few times a week Patient Tobacco Use Status: Never used Tobacco e-Cigarette/Vaping Use: Never Used Current occupational status: retired Cognitive needs: No Hearing needs: No Vision needs: Yes Review of Systems Musc Reports numbness Neuro Reports numbness Physical Exam Vital Signs: Last Vital Signs Pulse 96 01/14/24 13:56 BP 118/64 01/14/24 13:56 Pulse Ox 96 01/14/24 13:56 Oxygen Delivery Method Room Air 01/14/24 13:56 BMI result Body Mass Index 29.7 Const General: cooperative, healthy appearing and comfortable Nutritional Appearance: overweight Orientation/consciousness: patient oriented x3 Limitations: no limitations HEENT Head: Yes normocephalic and Yes atraumatic Resp Effort & Inspection: normal respiratory effort and able to speak in complete sentences Skin General skin exam: no rashes or lesions noted Neuro General: patient oriented x3 Extrem Other: 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 On allopurinol 300 mg daily. Has not had any gout flares in more than 15-16 years. Most recent uric acid level 4.9 which is at target. Continue allopurinol 300 mg daily. 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
== END 2024-01-14 14:25 | disposition home or self-care (01) ==
PROVIDERS: PCP Internal Medicine; Visit Provider Student in an Organized Health Care Education/Training Program
DX: M1A.09X1 Idiopathic chronic gout, multiple sites, with tophus (tophi) (principal); G62.89 Other specified polyneuropathies
CPT/HCPCS: 99213

== ENCOUNTER → 2024-01-14 13:54 | Outpatient (BNVA) | payer MEDICARE, SELFPAY | PROVIDERS: PCP Internal Medicine; Visit Provider Student in an Organized Health Care Education/Training Program | DX: M1A.09X1 Idiopathic chronic gout, multiple sites, with tophus (tophi) (principal); G62.89 Other specified polyneuropathies | CPT/HCPCS: 99212 ==

== ENCOUNTER 2024-02-09 11:54 | Outpatient (AMB) | payer MEDICARE, SELFPAY ==
--- NOTE | 2024-02-09 12:13 | AM.OFFVISMDC ---
Intake Vital Signs 02/09/24 12:19 Height 5 ft 10 in Weight 204 lb BMI 29.3 BP 128/66 Blood Pressure Location Rt brachial Position Sitting Pulse 74 Pulse Source Pulse Oximeter Pulse Oximetry (%) 96 Oxygen Delivery Method Room Air Intake Visit Reasons: AWV Allergies No Known Allergies [No Known Allergies*] Allergy (Verified 02/09/24 12:21) Medication List - Last Reconciled 02/09/24 by Jodi Roland MD allopurinol 300 mg PO DAILY alpha lipoic acid 600 mg PO DAILY 30 days aspirin 81 mg PO DAILY finasteride 5 mg PO DAILY 90 days flu vac 2020 [id number](PF) 60 mcg (15 mcg x 4)/0.5 mL mL IM ibuprofen TAKE 1 TABLET BY MOUTH TWICE A DAY lisinopril 10 mg PO DAILY omega 5-ngo-wdr-fish oil 60-90-500 mg (Fish Oil) 1 cap PO DAILY simvastatin 40 mg PO DAILY HPI AWV HPI Details Initiated the conversation about Advanced Directives. Advanced Directives help? patients prepare for current and future decisions about their medical treatment? and place of care. Discussed with patient that it is a process where a patients? current condition and prognosis are reviewed, their wishes for information? regarding their illness are elicited, and likely medical dilemmas are presented? and options discussed. The form can be amended as needed, reviewed yearly and? make changes as needed IPPE/AWV ? year old presents? for her ? Annual? Wellness Visit, initial visit.? Medical / Social History Reviewed? Past Medical History ?Yes? . ? [place]? of Care / Care Team list updated ?Yes . ? Surgical/Hospitalization? History ?Yes . ? Current Medications? (including OTC and supplements) ?Yes . ? Family History ?Yes? . ? Tobacco? Control form ?Yes . ? AUDIT-C (Alcohol use) form? ?Yes . ? Illicit drug use in Social? History ?Yes . ? Current diagnosis of? depression? ?No ? Appropriate PHQ2/PHQ9? completed ?Yes . ? Data entered by ?Medical? Skip Operator and reviewed by provider ? Fall Risk ? Fall? History? Have you had any falls with? injury in the past year? ?No . ? Have you had two or more? falls in the past year? ?No . ? Fall Risk Assessment: ?No? falls in the past year . ? HRA filled out by? the patient, reviewed by Provider and scanned. ? IPPE/AWV ? Balance? Romberg? ?Yes . ? Tandem? walk ?Yes . ? Walk and? Turn ?Yes . ? Rise from? sit to stand ?Yes . ?Vision? Corrective? lens ?Yes ? Vision? screen ? Up-to-date, has an appointment [] for vision? screening and glaucoma screening ?Hearing? Whisper? test ?pass .? Initiated the conversation about Advanced Directives. Advanced Directives help? patients prepare for current and future decisions about their medical treatment? and place of care. Discussed with patient that it is a process where a patients? current condition and prognosis are reviewed, their wishes for information? regarding their illness are elicited, and likely medical dilemmas are presented? and options discussed. The form can be amended as needed, reviewed yearly and? make changes as needed Written? Plan?Completed. See Patient? Documents. PENDING SALE TO [facility] Medical History (Updated 02/09/24 @ 13:05 by Jodi Roland MD) Hyperglycemia Fatty liver BPH (benign prostatic hyperplasia) Gout Rotator cuff disorder CKD (chronic kidney disease), stage III Melanoma Hypercholesterolemia Hypertension Surgical History H/O colonoscopy Melanoma of back History of ankle surgery History of knee surgery Family History Father Cerebral aneurysm Mother No problems noted. Son No problems noted. Daughter No problems noted. Social History Household Members: Spouse Housing: House Alcohol intake: current Alcohol intake frequency: a few times a week Patient Tobacco Use Status: Never used Tobacco e-Cigarette/Vaping Use: Never Used Current occupational status: retired Cognitive needs: No Hearing needs: No Vision needs: Yes Questionnaire Medicare Wellness Checkup [age] What gender do you identify with?: male During the past 4 weeks, how much have you been bothered by emotional problems such as feeling anxious, depressed, irritable, sad or downhearted, and blue?: not at all During the past 4 weeks, has your physical & emotional health limited your social activities with family, friends, neighbors, or groups?: not at all During the past 4 weeks, how much bodily pain have you generally had?: very mild pain During the past 4 weeks, was someone available to help you if you needed & wanted help?: no, not at all During the past 4 weeks, what was the hardest physical activity you could do for at least 2 minutes?: heavy Can you get to places out of walking distance without help? (For eg., can you travel alone on buses, taxis or drive your car?): Yes Can you go shopping for groceries or clothes without someone's help?: Yes Can you prepare your own meals?: Yes Can you do your housework without help?: Yes Because of any health problems, do you need the help of another person with your personal care needs such as eating, bathing, dressing or getting around the house?: No Can you handle your own money without help?: Yes During the past 4 weeks, how would you rate your health in general?: excellent During the past 4 weeks how have things been going for you?: very well; could hardly better Are you having difficulties driving your car?: no Do you always fasten your seat belt when you are in a car?: yes, usually During past 4 weeks, have you been bothered by the following: never: Falling or dizzy when standing up, Sexual problems?, Trouble eating well?, Teeth or denture problems?, Problems using the telephone? and Tiredness or fatigue? Have you fallen 2 or more times in the past year?: No Are you afraid of falling?: No Are you a smoker?: no During the past 4 weeks, how many drinks of wine, beer, or other alcoholic beverages did you have?: 6-9 drinks per week Do you exercise for about 20 minutes 3 or more times a week?: yes, most of the time Have you been given information to help with the following?: no: Hazards in your house that might hurt you? and no: Keeping track of your medications? How often do you have trouble taking medicines the way you have been told to take them?: I always take medicine as prescribed How confident are you that you can control & manage most of your health problems?: very confident What is your race?: White Mini Mental State Exam (MMSE) Orientation What is the (year) (season) (date) (day) (month)?: year, season, date, day and month Where are we (state) (county) (town or city) (hospital) (floor)?: state, county, town or city, hospital/clinic and floor Registration Name of 3 unrelated objects clearly and slowly, then ask patient to repeat all 3 of them. (1st repeat determines score. Make sure they can repeat all three): object 1, object 2 and object 3 Attention & Calculation (CHOOSE ONE) Spell WORLD backwards (DLROW): 5 letters Recall Ask patient to repeat the 3 items from question #3.: object 1, object 2 and object 3 Language Show patient a wristwatch & ask what it is. Repeat for pencil.: watch and pencil Ask the patient to repeat the phrase 'No ifs, ands, or buts' after you.: correct Ask the patient to 'take a piece of paper with their right hand' 'fold paper in half' 'place paper on floor': take paper in right hand, fold paper in half and place paper on floor Print the sentence 'CLOSE YOUR EYES' on a piece. If patient actually closes eyes then score.: followed written direction Give patient a blank piece of paper & ask to write a sentence. Score if it contains a noun & verb.: sentence contains subject and verb Score Score: 29 Activity of Daily Living Bathing - sponge bath, tub bath or shower: receives no assistance (gets in/out by self, if usual bathing means Dressing - getting clothes from closets & drawers, including inner/outer garments & fasteners.: gets clothes & gets completely dressed without help Toileting - going to the 'toilet room' for urine/bowel elimination & cleaning self/arranging clothes: goes to toilet room, cleans self, arranges clothes without help Transfer: moves in & out of bed and chair without help (may use support object) Continence: controls urination/bowel movements completely by self Feeding: feeds self without help Total Score: 0 Information obtained from: patient Using telephone: independent Traveling: independent Shopping: independent Preparing meals: independent Housework: independent Taking medicine: independent Managing money: independent PHQ-9 Over the last 2 weeks, how often have you been bothered by any of the following problems? 1. Little interest or pleasure in doing things: not at all 2. Feeling down, depressed, or hopeless: not at all 3. Trouble falling or staying asleep, or sleeping too much: not at all 4. Feeling tired or having little energy: not at all 5. Poor appetite or overeating: not at all 6. Feeling bad about yourself - or that you are a failure or have let yourself or your family down: not at all 7. Trouble concentrating on things, such as reading the newspaper or watching television: not at all 8. Moving or speaking so slowly that other people could have noticed. Or the opposite - being so fidgety or restless that you have been moving around a lot more than usual: not at all 9. Thoughts that you would be better off or of hurting yourself in some way: not at all Total score: 0 Depression Screening Interpretation: Negative Depression Screening Done: Yes Source: Developed by Drs. Scottie You, Kassy Wells, Tyrese Buckner and colleagues, with an educational nany from [employer]. Review of Systems Const All systems reviewed & are unremarkable except as noted in HPI and below Eyes Reports no additional complaints ENT Reports no additional complaints Card Reports no additional complaints Resp Reports no additional complaints GI Reports no additional complaints Reports no additional complaints Physical Exam Vital Signs: Last Vital Signs Pulse 74 02/09/24 12:19 BP 128/66 02/09/24 12:19 Pulse Ox 96 02/09/24 12:19 Oxygen Delivery Method Room Air 02/09/24 12:19 BMI result Body Mass Index 29.3 Const General: no acute distress HEENT Head: Yes normal to inspection Ears: hearing grossly normal bilaterally Neck Neck: Yes supple Resp Effort & Inspection: normal respiratory effort Auscultation: clear to auscultation bilaterally Cardio Rhythm: regular rhythm Heart sounds: S1 normal heart sound present and S2 normal heart sound present GI Inspection: Yes normal to inspection Palpation (GI): Soft to palpation Percussion: Yes normal to percussion Auscultation: normal bowel sounds Extrem General: Yes no clubbing, cyanosis or edema Assessment & Plan Assessment & Plan (1) Hypertension: Code(s): I10 - Essential (primary) hypertension Plan: Continue lisinopril (2) Hypercholesterolemia: Code(s): E78.00 - Pure hypercholesterolemia, unspecified Plan: Continue statin (3) Hyperglycemia: Comment: A1C 5.9 02/22 Code(s): R73.9 - Hyperglycemia, unspecified Plan: ADA diet regular physical activity discussed with the patient return for fasting blood work including A1c (4) CKD (chronic kidney disease), stage III: Code(s): N18.30 - Chronic kidney disease, stage 3 unspecified Plan: Monitor renal function avoid nephrotoxins (5) BPH (benign prostatic hyperplasia): Comment: Dr. Prather Code(s): N40.0 - Benign prostatic hyperplasia without lower urinary tract symptoms Qualifiers: Lower urinary tract symptom presence: symptoms present Lower urinary tract symptom detail: weak urinary stream Qualified Code(s): N40.1 - Benign prostatic hyperplasia with lower urinary tract symptoms; R39.12 - Poor urinary stream Plan: Continue finasteride follow-up with urology annually Orders: Orders Complete Blood Count Auto Diff 1 Year E78.00 - Pure hypercholesterolemia, unspecified, N18.30 - Chronic kidney disease, stage 3 unspecified, R73.9 - Hyperglycemia, unspecified, Z00.00 - Encounter for general adult medical examination without abnormal findings Lipid Panel 1 Year E78.00 - Pure hypercholesterolemia, unspecified, N18.30 - Chronic kidney disease, stage 3 unspecified, R73.9 - Hyperglycemia, unspecified, Z00.00 - Encounter for general adult medical examination without abnormal findings TSH reflex Free T4 1 Year E78.00 - Pure hypercholesterolemia, unspecified, N18.30 - Chronic kidney disease, stage 3 unspecified, R73.9 - Hyperglycemia, unspecified, Z00.00 - Encounter for general adult medical examination without abnormal findings Hemoglobin A1c 1 Year E78.00 - Pure hypercholesterolemia, unspecified, N18.30 - Chronic kidney disease, stage 3 unspecified, R73.9 - Hyperglycemia, unspecified, Z00.00 - Encounter for general adult medical examination without abnormal findings Comprehensive Summers. Panel Fast Today E78.00 - Pure hypercholesterolemia, unspecified, I10 - Essential (primary) hypertension, R73.9 - Hyperglycemia, unspecified Complete Blood Count Auto Diff Today E78.00 - Pure hypercholesterolemia, unspecified, I10 - Essential (primary) hypertension, R73.9 - Hyperglycemia, unspecified Hemoglobin A1c Today E78.00 - Pure hypercholesterolemia, unspecified, I10 - Essential (primary) hypertension, R73.9 - Hyperglycemia, unspecified Lipid Panel Today E78.00 - Pure hypercholesterolemia, unspecified, I10 - Essential (primary) hypertension, R73.9 - Hyperglycemia, unspecified Comprehensive Summers. Panel Fast 1 Year E78.00 - Pure hypercholesterolemia, unspecified, N18.30 - Chronic kidney disease, stage 3 unspecified, R73.9 - Hyperglycemia, unspecified, Z00.00 - Encounter for general adult medical examination without abnormal findings Quality Reporting (2019) Depression/Bipolar (159/160/161/177) PHQ-9: Total score: 0 Coding Level of Care Code Medicare Subsequent (G0439) Diagnoses Hypertension I10 Hypercholesterolemia E78.00 Hyperglycemia R73.9 CKD (chronic kidney disease), stage III N18.30 Benign prostatic hyperplasia with weak urinary stream N40.1; R39.12 Lower urinary tract symptom presence: symptoms present Lower urinary tract symptom detail: weak urinary stream CPT Codes Advance Care Planning - Advance Care Planning discussion: On file, no changes ([id number]) Advance Care Planning - Time spent: 1-15 minutes, on File ([id number]) Advance Care Planning Advance Care Planning discussion: On file, no changes Forms completed: Health Care Proxy Time spent: 1-15 minutes, on File
[2024-02-09 12:19] VITALS: BP 128/66; PULSE 74; O2SAT 96; BMI 29.3
== END 2024-02-09 13:09 | disposition home or self-care (01) ==
PROVIDERS: PCP Internal Medicine; Visit Provider Internal Medicine
DX: Z00.00 Encounter for general adult medical examination without abnormal findings (principal); I12.9 Hypertensive chronic kidney disease with stage 1 through stage 4 chronic kidney disease, or unspecified chronic kidney disease; N18.30 Chronic kidney disease, stage 3 unspecified; E78.00 Pure hypercholesterolemia, unspecified; R73.9 Hyperglycemia, unspecified; N40.1 Benign prostatic hyperplasia with lower urinary tract symptoms; R39.12 Poor urinary stream
CPT/HCPCS: 1123F; G0439

== ENCOUNTER 2024-04-19 07:58 | Outpatient (REF) | payer MEDICARE, SELFPAY ==
[2024-04-19 10:14] LABS: MANUAL DIFF FLAG NO
[2024-04-19 10:23] LABS: Basophils Percent Auto 0.3 % (0-2); Eosinophils Absolute Auto 0.3 X10*3/uL (0.0-0.4); Eosinophils Percent Auto 3.6 % (0-4); Hematocrit 44.8 % (42.0-52.0); Hemoglobin 14.9 g/dl (14.0-18.0); Imm Gran Abs Auto 0.04 X10*3/uL (0.00-0.03); Imm Gran Pct Auto 0.4 % (0.0-0.4); Lymphocytes Absolute Auto 3.3 X10*3/uL (1.2-4.9); Lymphocytes Percent Auto 37.4 % (20-40); Mean Corpuscular HGB Conc 33.3 g/dl (31.0-36.0); Mean Corpuscular Hemoglobin 30.1 pg (27.0-33.0); Mean Corpuscular Volume 90.5 fL (80.0-98.0); Mean Platelet Volume 10.3 fL (9.4-12.4); Monocytes Absolute Auto 0.8 X10*3/uL (0.1-1.2); Monocytes Percent Auto 8.5 % (2-11); Neutrophils Absolute Auto 4.4 x10*3/uL (2.0-8.3); Neutrophils Percent Auto 49.8 % (45-73); Platelet Count 158 X10*3/uL (160-400); Red Blood Count 4.95 X10*6/uL (4.60-5.80); Red Cell Distribution Width 14.4 % (11.0-16.0); White Blood Count 8.9 X10*3/uL (4.8-10.8)
[2024-04-19 10:52] LABS: Alanine Aminotransferase 33 U/L (0-40); Albumin Level 4.2 g/dL (3.5-5.0); Alkaline Phosphatase 84 U/L (39-117); Anion Gap 14 (12-20); Aspartate Amino Transferase 41 U/L (5-37); Bilirubin Total 0.5 mg/dL (0.0-1.0); Blood Urea Nitrogen 33 mg/dL (9-16); Calcium 9.6 mg/dL (8.4-10.2); Carbon Dioxide 22 mmol/L (22-29); Chloride 108 mmol/L (96-108); Cholesterol 187 mg/dL (<200); Estimated Glomerular Filt Rate 59; Glucose Fasting 130 mg/dL (60-99); HDL Cholesterol 49 mg/dL (>40); LDL Cholesterol Calculated 95 mg/dL (<100); Potassium 4.9 mmol/L (3.3-5.1); Sodium 139 mmol/L (135-145); Total Protein 7.1 g/dL (6.5-8.0); Triglycerides 218 mg/dL (<150)
[2024-04-19 10:55] LABS: Estimated Average Glucose 126 mg/dL; Total Hemoglobin (HGBA1C) 3651.0986 umol/L
[2024-04-19 11:06] LABS: Prostate Specific Antigen 1.74 ng/mL (<0.05-4.0)
== END 2024-04-19 07:59 | disposition home or self-care (01) ==
LOC: HO.HMGCLDS 07:58
PROVIDERS: PCP Internal Medicine; Referring Provider Urology; Visit Provider Internal Medicine
DX: N40.1 Benign prostatic hyperplasia with lower urinary tract symptoms (principal); R39.12 Poor urinary stream; I10 Essential (primary) hypertension; E78.00 Pure hypercholesterolemia, unspecified; R73.9 Hyperglycemia, unspecified; Z12.5 Encounter for screening for malignant neoplasm of prostate
CPT/HCPCS: 36415; 80053; 80061; 83036; 84153; 85025

== ENCOUNTER 2024-04-29 10:12 | Outpatient (AMB) | payer MEDICARE, SELFPAY ==
--- NOTE | 2024-04-29 10:09 | A.OFFVIS_ITS ---
Intake Visit Reasons: 6M Follow Up-PSA(set) Intake Note: Patient presents today for a 6M follow up on PSA Meds- Finasteride,allopurinol Allergies to Antibiotic- No Known Allergies Blood thinner: Aspirin [employer] Attorney Required: No Allergies No Known Allergies [No Known Allergies*] Allergy (Verified 04/29/24 10:10) Medication List - Last Reconciled 04/29/24 by Stuart Prather MD allopurinol 300 mg PO DAILY alpha lipoic acid 600 mg PO DAILY 30 days aspirin 81 mg PO DAILY finasteride 5 mg PO DAILY 90 days flu vac 2020 [id number](PF) 60 mcg (15 mcg x 4)/0.5 mL mL IM ibuprofen TAKE 1 TABLET BY MOUTH TWICE A DAY lisinopril 10 mg PO DAILY omega 8-yym-gwz-fish oil 60-90-500 mg (Fish Oil) 1 cap PO DAILY simvastatin 40 mg PO DAILY HPI Comments Details: Scottie GREEN is a very pleasant male. He is a patient of Dr. Roland. He is seen for the following urologic conditions. - lower urinary tract symptoms - elevated PSA Telemedicine evaluation 15 minute consultation Doximity morris Video attempted PSA continued to fall 1.8 Twelve month follow-up Prior biopsy 2004 Large prostate on exam Elevated PSA/Abnormal JOSIAS: He presents for Further evaluation for elevated PSA Large prostate on exam Has had elevated PSA he says for around 20 years. Current management is observation. Laboratory investigations include a total PSA evaluation for September 2014 4.8, January 2015 3.6, October 2016 5.6, 05/19 4.8, 11/18 4.6, 11/19 4.7, 11/20 5.6, 12/21 7.3, 04/23 2.7, 10/22 2.8, 04/24 3.3, 10/23 2.4, 04/25 2/4, 10/24 1.8, 04/26 1.7 Individualized Prostate Cancer Risk Calculator 5-10% high risk, Would like to continue with observation and understands and accepts the risks of a possible delay in diagnosis. Symptoms include incomplete emptying, intermittency, and are stable. Therapeutic plan - 12m f/u PSA [facility] Medical History (Updated 02/09/24 @ 13:05 by Jodi Roland MD) Hyperglycemia Fatty liver BPH (benign prostatic hyperplasia) Gout Rotator cuff disorder CKD (chronic kidney disease), stage III Melanoma Hypercholesterolemia Hypertension Surgical History H/O colonoscopy Melanoma of back History of ankle surgery History of knee surgery Family History Father Cerebral aneurysm Mother No problems noted. Son No problems noted. Daughter No problems noted. Social History Household Members: Spouse Housing: House Alcohol intake: current Alcohol intake frequency: a few times a week Patient Tobacco Use Status: Never used Tobacco e-Cigarette/Vaping Use: Never Used Current occupational status: retired Cognitive needs: No Hearing needs: No Vision needs: Yes Review of Systems Const All systems reviewed & are unremarkable except as noted in HPI and below Reports no additional complaints Resp Reports no additional complaints GI Reports no additional complaints Reports as per HPI Musc Reports no additional complaints Physical Exam Telemedicine evaluation Appropriate responses Regular breathing rate and rhythm HEENT Head: Yes normal to inspection Ears: hearing grossly normal bilaterally Eyes General: appearance normal, both eyes and all related structures Neck Neck: Yes normal visual inspection Chest Chest palpation & inspection: normal inspection of the chest Resp Effort & Inspection: normal respiratory effort and able to speak in complete sentences Telehealth Telehealth Telehealth Platform: [facility] Location of provider rendering services: practice address Location of patient: address on file Patient Identification confirmed using: Name, : Yes Telehealth method: video Patient verbally consented to treatment: Yes Patient verbally consented to billing insurance company: Yes Patient informed of any privacy concerns related to visit: Yes Minutes spent on Phone/Video with Pt.: 15 Assessment & Plan Assessment & Plan (1) Elevated PSA: Code(s): R97.20 - Elevated prostate specific antigen [PSA] Category: Medical (2) BPH (benign prostatic hyperplasia): Comment: Dr. Prather Code(s): N40.0 - Benign prostatic hyperplasia without lower urinary tract symptoms Category: Medical Qualifiers: Lower urinary tract symptom presence: symptoms present Lower urinary tract symptom detail: weak urinary stream Qualified Code(s): N40.1 - Benign prostatic hyperplasia with lower urinary tract symptoms; R39.12 - Poor urinary stream Plan Twelve month follow-up Orders: Orders PSA,Total (Free>4and<10) 364 Days R97.20 - Elevated prostate specific antigen [PSA] Medications: Refilled finasteride 5 mg PO DAILY 90 days 90 tabs 3RF N13.8 - Other obstructive and reflux uropathy, N40.1 - Benign prostatic hyperplasia with lower urinary tract symptoms, R97.20 - Elevated prostate specific antigen [PSA] Patient Instructions: Imaging studies, laboratory and physical exam results were discussed and reviewed in detail. No major barriers to patient understanding were identified. An opportunity to ask questions regarding the treatment plan was provided. All questions were answered. The patient expressed understanding and agreement with the above treatment plan. The patient is aware they should contact our office by phone for worsening of their current condition or the appearance of new urologic symptoms. Compliance is encouraged with any medications and followup testing that is ordered. It is a privilege to participate in the urologic care of your patient. If you have any questions or concerns regarding treatment for the above conditions, or other urologic issues, please do not hesitate to contact me. The office telephone contact is [phone]. This note is constructed using voice recognition software. While every effort has been made to ensure accuracy circuit breaker mechanic errors may have been included. Yours sincerely, Dr Stuart Prather MD, [facility] - Urology Providers of Expert, Compassionate Care for the Genitourinary System Coding Level of Care Code Tele Est Pt Level 3 (03564) Diagnoses Elevated PSA R97.20 Benign prostatic hyperplasia with weak urinary stream N40.1; R39.12 Lower urinary tract symptom presence: symptoms present Lower urinary tract symptom detail: weak urinary stream
--- OUTSIDE RECORDS SUMMARY | 2024-04-29 10:13 | XMS_ITS | Continuity of Care Document ---
Author Organization [facility] Address [address] [place] [address]- Care Team Providers Care Lapel Baster Name Role Phone Milvia Ridley DO Primary Care Physician [phone] Encounter [facility] ACCT R [id number] Date(s): 03/17/23 - 06/01/[address] [address]- Encounter Diagnosis Pain in right shoulder(Final) - Discharge Disposition: A-D/C Home Attending Physician: Lorenzo Mcgraw MD Admitting Physician: Lorenzo Mcgraw MD Referring Physician: Lorenzo Mcgraw MD Allergies, Adverse Reactions, Alerts No Known Allergies Immunizations Given and Recorded Vaccine Date Status Refusal Reason SARS-CoV-2 (COVID-19) mRNA BNT-162b2 vac 09/24/20 Given Medications Allopurinol 400 mg, By Mouth, Daily, Refills 0, Maintenance, 06/12/16 13:19:16 Start Date: 06/12/16 Status: Ordered Aspirin Tablet 81 mg, By Mouth, Daily, Refills 0, Maintenance, 07/08/16 15:09:43 Start Date: 07/08/16 Status: Ordered finasteride 5 mg oral tablet 1 tablet = 5 mg, By Mouth, Daily, 0 Refills, Maintenance, 02/26/23 10:48:00 EDT, Partial fill upon patient request if the prescription is for a schedule II opioid drug. Start Date: 02/26/23 Status: Ordered Fish Oil By Mouth, 0 Refills, Maintenance, 02/26/23 10:48:00 EDT, Partial fill upon patient request if the prescription is for a schedule II opioid drug. Start Date: 02/26/23 Status: Ordered Ibuprofen 600 mg, Refills 0, Maintenance, 02/26/23 10:46:00 EDT, Partial fill upon patient request if the prescription is for a schedule II opioid drug. Start Date: 02/26/23 Status: Ordered Lisinopril = 10 mg, By Mouth, Daily, 0 Refills, Maintenance, 06/12/16 13:19:03 Start Date: 06/12/16 Status: Ordered Multivitamin Daily, 0 Refills, Maintenance, 02/26/23 10:48:00 EDT, Partial fill upon patient request if the prescription is for a schedule II opioid drug. Start Date: 02/26/23 Status: Ordered Simvastatin = 40 mg, By Mouth, Daily at bedtime, 0 Refills, Maintenance, 06/12/16 13:19:34 Start Date: 06/12/16 Status: Ordered Patient Care team information Care Team Personnel Name: Leon Nichole RN Position: [facility] RN Member Role: Primary Care Nurse Name: Milvia Ridley DO Position: Reference Physician Member Role: PCP Address: Address: [address] [place] [address] Name: Shelly Hess RN Position: [facility] RN Member Role: Primary Care Nurse Care Team Related Persons Name: MILVIA GREEN Address: [address] [address]
--- OUTSIDE RECORDS SUMMARY | 2024-04-29 10:13 | XMS_ITS | Continuity of Care Document ---
Author Organization [facility] Address [address] [place] [id number]- Care Team Providers Care Framing Machine Tender Name Role Phone Milvia Ridley DO Primary Care Physician Encounter [facility] Date(s): 04/30/23 - 05/30/[address] [address] [[email or web address] Attending Physician: Erasto Salgado Admitting Physician: Admtr, Erasto Referring Physician: Admtr, Ar8 Allergies, Adverse Reactions, Alerts No Known Allergies [...] Team Personnel Name: Leon Nichole RN Position: S RN Member Role: Primary Care Nurse Name: Milvia Ridley DO Position: Reference Physician Member Role: PCP Address: Address: [address] [place] [id number] [place] [address] Name: Shelly Hess RN Position: S RN Member Role: Primary Care Nurse Care Team Related Persons Name: MILVIA GREEN Address: [address] [address]
--- OUTSIDE RECORDS SUMMARY | 2024-04-29 10:14 | XMS_ITS | Continuity of Care Document ---
Author Organization [facility] ter Address [address] [place] [id number]- Care Team Providers Care Medical Scientist Name Role Phone Jodi Roland MD Primary Care Physician [place] [facility] [place]): [place] 03/03/[address] [address] Discharge Disposition: A-D/C Home Attending Physician: Lorenzo [...] 06/12/16 13:19:03 Start Date: 06/12/16 Status: Ordered lisinopril 10 mg oral tablet 10 mg, Tablet, By Mouth, 03/03/23 9:00:00 EDT Start Date: 03/03/23 Stop Date: 03/03/23 Status: Completed Multivitamin Daily, 0 Refills, Maintenance, 02/26/23 10:48:00 EDT, Partial fill upon patient request if the prescription is for a schedule II opioid drug. Start Date: 02/26/23 Status: Ordered oxyCODONE 5 mg oral tablet 10 mg, Tablet, By Mouth, Every 6 hours, PRN for Pain , Moderate, Routine, 03/02/23 15:26:00 EDT Start Date: 03/02/23 Stop Date: 03/03/23 Status: Discontinued Simvastatin = 40 mg, By Mouth, Daily at bedtime, 0 Refills, Maintenance, 06/12/16 13:19:34 Start Date: 06/12/16 Status: Ordered Vital Signs Most recent to oldest [Reference Range]: 1 2 3 Height 175 cm (03/03/23 7:03 AM) 175 cm (03/03/23 3:09 AM) 175 cm (03/02/23 11:11 PM) Weight 91.5 kg (03/02/23 11:10 AM) Oxygen Saturation [94-100 %] 93 % *L* (03/03/23 7:03 AM) 95 % (03/03/23 3:09 AM) 93 % *L* (03/02/23 11:11 PM) Pulse Rate [55-90 bpm] 101 bpm *H* (03/03/23 7:03 AM) 112 bpm *H* (03/03/23 3:09 AM) 96 bpm *H* (03/02/23 11:11 PM) Body Mass Index [18.5-24.99 kg/m2] 29.88 kg/m2 *H* (03/02/23 11:10 AM) Blood Pressure [90-138/55-84 mm Hg] 175/95mm Hg *H* (03/03/23 7:14 AM) 175/95mm Hg *H* (03/03/23 7:03 AM) 157/91mm Hg *H* (03/03/23 3:09 AM) Respiratory Rate [16-30 br/min] 18 br/min (03/03/23 8:20 AM) 18 br/min (03/03/23 7:20 AM) 20 br/min (03/03/23 7:03 AM) Temperature [96.8-100.4 DegF] 97.5 DegF (03/03/23 7:03 AM) 97.6 DegF (03/03/23 3:09 AM) 98.3 DegF (03/02/23 11:11 PM) Liters per Minute 2 L/min (03/02/23 4:00 PM) 6 L/min (03/02/23 3:00 PM) Mode of Delivery (Oxygen) Room air (03/03/23 7:03 AM) Room air (03/03/23 3:09 AM) Room air (03/02/23 11:11 PM) Blood pressure sites Arm, left (03/03/23 7:03 AM) Arm, left (03/03/23 3:09 AM) Arm, left (03/02/23 11:11 PM) Temperature Route Oral (03/03/23 7:03 AM) Oral (03/03/23 3:09 AM) Oral (03/02/23 11:11 PM) Dry Weight 91.5 kg (03/02/23 11:10 AM) 88.5 kg (02/26/23 11:21 AM) Weight Obtained Via Standing scale (03/02/23 11:10 AM) Dry Weight Obtained Via Standing scale (03/02/23 11:10 AM) Patient/family stated (02/26/23 11:21 AM) History and physical note * Event Display: History and Physical Hospital Authored Date: Hospital Progress note * Fiordaliza Moore RN: PERFORM, SIGN, VERIFY Event Display: Progress Note Hospital Authored Date: Patient: JOAN GREEN Age: 77 years Sex: Male : 1945 Associated Diagnoses: None Author: Bressette RN, Fiordaliza Findings Pt admitted to Obs Unit via PACU. Admitting dx of Right total shoulder. Pt A&Ox4, independent, VSS, Denies pain, dizziness, nausea or vomiting. Pt educated on use and importance of IS. Pt cooperative with use. He ambulated to bathroom to void without issue. Oriented to unit, use of call garay system, and care team. Call garay within reach. Pt able to make needs known. Nursing Data Vital Signs : VITAL SIGNS SECTION 03/02/2023 15:45 EDT Temperature 96.5 DegF L Temperature Route Temporal Heart Rate Monitored 60 bpm Respiratory Rate 12 br/min L Systolic Blood Pressure 137 mm Hg Diastolic Blood Pressure 82 mm Hg Blood pressure sites Arm, left Pulse Pressure 55 mm Hg Oxygen Saturation 97 % Mode of Delivery (Oxygen) Room air . Note * Shelly Hess RN: PERFORM Event Display: Discharge/Transfer Note Hospital Authored Date: [id number] Nursing Discharge Note Entered On: 03/03/2023 13:04 EDT Performed On: 03/03/2023 13:04 EDT by Shelly Hess RN Nursing Discharge Note 2 Discharge Time : 03/03/2023 13:30 EDT Shelly Hess RN - 03/03/2023 16:27 EDT Discharge Level of Care at Discharge : Home/Mcfp/Foster Care Patient Left Unit Via : Wheelchair Patient Accompanied Off Unit with : Responsible adult, Other: STAFF DC Instructions Provided & Signed by Pt : Yes Patient Understands D/C Instructions : Yes Patient Instructions Discharge Signed : Yes Did Pt have Specialty Bed or Wound Vac : No Shelly Hess RN - 03/03/2023 13:04 EDT * Shelly Hess RN: PERFORM Event Display: Patient Education/Instruction Authored Date: [id number] Inpatient Adult Discharge Instructions [address] [address] Name: JOAN GREEN : 1945 Visit: 03/02/2023 10:00:00 Current Date: 03/03/2023 13:08 Account: [id number] Inpatient Adult Discharge Instructions We would like to thank you for allowing us to assist you with your healthcare needs. The following includes patient education materials and information regarding your injury/illness. Our entire staffstrives to provide an excellent experience for our patients and their families. PLEASE ENSURE YOU FOLLOW-UP PER THE INSTRUCTIONS BELOW! ?? YOUR OPINION IS IMPORTANT TO US! Please complete the survey you may receive by mail or email. Your feedback will be used to make improvements to the healthcare experiences of our patients and their families. Surveys are administered by [employer] ?? If further treatment with your primary care physician or another doctor is recommended, it is important for you to keep the appointment. Call your primary care physician or return to the Emergency Department immediately if your condition worsens, fails to improve, or new symptoms develop. If you need to find a doctor, you can call [facility] for a referral at [phone] or toll free at [phone]) or log in to [email or web address] ?? You can view and manage your care through the patient portal or by using a health care morris of your choosing. [employer] is a website that allows you to securely view your medical information including your hospital discharge summary, office visit summaries, medications and follow-up visits. You can also request appointments, renew medications, and request access to your medical information using a health care morris of your choosing, or just ask a question. You can enroll at [email or web address] or register during your next office visit. You have been discharged from [facility], Patient Care Unit: S3. If you have any questions regarding these instructions after you leave, please call us and we will be happy to assist you. [facility] Your Care Team Attending Physician Lorenzo Mcgraw MD Discharging Providers Lincoln Rosas Reason for Admission OSTEOARTHRITIS SHOULDER OVN CS Your Diagnosis right shoulder arthroplasty Tests Performed Below is a partial list of the tests performed during your hospitalization. You may have had other tests and procedures not included in this list. Please discuss all test results with your provider. Primary Care Provider Jodi Roland MD Advance Directive Health Care Proxy on File No Discharge Vitals Temperature: 97.5 DegF Height: 175 cm Pulse Rate:??101 bpm??High Weight: 91.5 kg Respiratory Rate: 18 br/min Body Mass Index:??29.88 kg/m2??High Systolic Blood Pressure:??175 mm Hg??High Body surface area: 2.11 Diastolic Blood Pressure:??95 mm Hg??High ?? Oxygen Saturation:??93 %??Low ?? Studies Pending All tests and labs ordered during this hospital stay have been completed unless listed below. Please discuss all pending results with your provider listed above in these instructions. ?? No incomplete studies found What to do next Instructions From Your Doctor Discharge Orders You Need to Schedule the Following Appointments Follow Up with??Asuncion JONES, Jodi Where: [address] [place] [address]- Discharge Medications JOAN GREEN :1945 Visit Date:03/02/2023 Medications: Please continue your medications until treatment is completed or stopped by your provider. Medications not listed below should be discontinued. Discuss any questions related to medications with your provider. What How Much When Instructions Next Dose Unchanged Allopurinol 400 Milligram Oral Daily 9a 03/04 Unchanged Aspirin (Aspirin Tablet) 81 Milligram Oral Daily 9a 03/04 Unchanged Finasteride (finasteride 5 mg oral tablet) 1 tab(s) Oral Daily 9a 03/04 Unchanged Ibuprofen 600 Milligram as needed Unchanged Lisinopril 10 Milligram Oral Daily 9a 03/04 Unchanged Multivitamin Daily 03/04 Unchanged Calhoun-3 Polyunsaturated Fatty Acids (Fish Oil) Oral 9a 03/04 Unchanged Simvastatin 40 Milligram Oral Daily at Bedtime 9pm 03/03 Test Results Below is a partial list of the most recent Laboratory test results done prior to this discharge. You may have had other tests and procedures not included in this list. Please discuss all test resultswith your provider. Allergies (NKA means No Known Allergies) NKA Problems No qualifying data available Education Materials Below is the list of Educational Leaflet Providered with your Discharge Instructions. Valuables and Belongings I fully understand and agree that [facility] accepts no responsibility for all my personal property including clothing, toilet articles, radios, jewelry, dentures, hearing aids, rings, money, or any other property that is in my possession or is brought to me after admission. I understand certain valuables may be placed in a hospital safe for a short period of time. I understand that the hospital is not liable for loss or damage due to accident, fire, or other natural occurrence while said property is in the safe. I accept full responsibility for any personal property that I keep with me, and will not hold the hospital responsible in case of loss or disappearance. I acknowledge that i have been encouraged to send valuables and belongings home. ?? Review of Valuable and Belonging List: With patient Date for Pt to Sign Valuables/Belongings: 03/03/23 07:03:00 ?? Other Discharge Information ? Case Management Discharge Plan?? Discharge Plan?? Discharge Level of Care at Discharge: Home/Mcfp/Foster Care ?? Pulmonary Rehab Status?? Pulmonary Rehab Discharge Status?? Respiratory Rate: 18 br/min ? Common Emergency Awareness Tips IS IT A STROKE? Act FAST and Check for these signs: FACE Does the face look uneven? ARM Does one arm drift down? SPEECH Does their speech sound strange? TIME Call at any sign of stroke ?? Heart Attack Signs Chest discomfort: Most heart attacks involve discomfort in the center of the chest and lasts more than a few minutes, or goes away and comes back. It can feel like uncomfortable pressure, squeezing, fullness or pain. Discomfort in upper body: Symptoms can include pain or discomfort in one or both arms, back, neck, jaw or stomach. Shortness of breath: With or without discomfort. Other signs: Breaking out in a cold sweat, nausea, or lightheaded. Remember, MINUTES DO MATTER. If you experience any of these heart attack warning signs, call to get immediate medical attention! ?? Smoking can increase your chances of developing chronic health problems and can cause harmful effects to other family members in your house. If you smoke, you are strongly encouraged to quit. Please call [facility] at [phone] or [phone]) or log in to [email or web address] for referrals to smoking cessation programs. ?? 909 Suicide & Crisis Lifeline is available 23/02 if you or someone you know needs to find a reason to keep living. By calling 703 you'll be connected to a skilled, trained counselor at a crisis center in your area. INPATIENT DISCHARGE INSTRUCTIONS SIGNATURE PAGE JOAN GREEN Location:[facility] Registration Date and Time:03/02/2023 10:00 EDT Primary Care Physician: Jodi Roland MD, Attending Physician: Lorenzo Mcgraw MD, I JOAN GREEN, have received the above patient education materials/instructions and have verbalized understanding. If ambulance or transport services are being used I further acknowledge being given a choice of service. ?? If you need to contact me, please call me at this number: . Patient/Marine Mechanic Name: Patient/Marine Mechanic Signature: Relationship to Patient: Witness Name/Signature: Date: Patient Care team information Care Team Personnel Name: Jodi Roland MD Position: [facility] Physician - Primary Care Member Role: PCP Address: Address: [address] [place], [place] [address] Name: Leon Nichole RN Position: S RN Member Role: Primary Care Nurse Name: Shelly Hess RN Position: S RN Member Role: Primary Care Nurse Care Team Related Persons Name: JOHNATHON GREEN Address: home [address] [place] [id number]
--- OUTSIDE RECORDS SUMMARY | 2024-04-29 10:14 | XMS_ITS | Continuity of Care Document ---
Author Organization [facility] ter Address [address] [place] [address]- Care Team Providers Care Pelletizer Tender Name Role Phone Milvia Ridley DO Primary Care Physician Encounter [facility] [place] [facility] [id number] Date(s): 02/11/23 - 03/15/[address] [address]- Attending Physician: Lorenzo Mcgraw MD Referring Physician: Lorenzo [...] Reference Physician Member Role: PCP Address: Address: [address] [place] [id number] Name: Shelly Hess RN Position: S RN Member Role: Primary Care Nurse Care Team Related Persons Name: MILVIA GREEN Address: [address] [address]
== END 2024-04-29 12:03 | disposition home or self-care (01) ==
LOC: HO.HUSH 10:12
PROVIDERS: PCP Internal Medicine; Visit Provider Urology
DX: R97.20 Elevated prostate specific antigen [PSA] (principal); N40.1 Benign prostatic hyperplasia with lower urinary tract symptoms; R39.12 Poor urinary stream
CPT/HCPCS: 99213

== ENCOUNTER → 2024-04-29 10:12 | Outpatient (BNVA) | payer MEDICARE, SELFPAY | PROVIDERS: PCP Internal Medicine; Visit Provider Urology ==

== ENCOUNTER 2024-08-09 10:24 | Outpatient (AMB) | payer MEDICARE, SELFPAY ==
[2024-08-09 11:41] VITALS: BP 124/70; PULSE 103; TEMP 36.7; O2SAT 98; BMI 29.6
--- NOTE | 2024-08-09 11:41 | AM.OFFWIN_ITS ---
Intake Vital Signs 08/09/24 11:41 Height 5 ft 10 in Weight 206 lb BMI 29.6 BP 124/70 Blood Pressure Location Lt brachial Position Sitting Pulse 103 H Pulse Source Pulse Oximeter Temp 98.0 F Temp Source Oral Pulse Oximetry (%) 98 Oxygen Delivery Method Room Air Intake Visit Reasons: EP chest congestion Intake Note: Pt is here today c/o chest congestion x5days Patient Tobacco Use Status: Never used Tobacco Allergies No Known Allergies [No Known Allergies*] Allergy (Verified 08/09/24 11:42) HPI HPI Comments History of Present Illness Details Patient is a 79yo M who presents to the office with cough He has HTN, Stage 3 CKD, HLD Started with laryngitis which improved Ongoing x 5 days Robitussin without relief Coughing throughout night; no phlegm coming up No smoking hx No fever or chills No has nasal congestion PFSH Medical History (Updated 08/09/24 @ 11:55 by Cassandra Mccullough PA-C) Hyperglycemia Fatty liver BPH (benign prostatic hyperplasia) Gout Rotator cuff disorder CKD (chronic kidney disease), stage III Melanoma Hypercholesterolemia Hypertension Surgical History H/O colonoscopy Melanoma of back History of ankle surgery History of knee surgery Family History Father Cerebral aneurysm Mother No problems noted. Son No problems noted. Daughter No problems noted. Social History Household Members: Spouse Housing: House Alcohol intake: current Alcohol intake frequency: a few times a week Patient Tobacco Use Status: Never used Tobacco e-Cigarette/Vaping Use: Never Used Current occupational status: retired Cognitive needs: No Hearing needs: No Vision needs: Yes Review of Systems Const Denies body aches, Denies chills, Denies fever(s), Denies headache(s) and Denies night sweats Eyes Denies change in vision ENT Denies dizziness, Denies otalgia, Denies headache(s), Reports nasal discharge, Denies sinus pain, Denies sinus pressure, Denies sore throat and Denies throat swelling Card Denies chest pain and Denies dyspnea Resp Reports cough, Denies hemoptysis, Denies excessive phlegm production and Denies dyspnea Musc Denies myalgias Neuro Denies dizziness and Denies headache(s) Aller/Immun Denies throat swelling Physical Exam Vital Signs: Last Vital Signs Temp 98.0 F 08/09/24 11:41 Pulse 103 H 08/09/24 11:41 BP 124/70 08/09/24 11:41 Pulse Ox 98 08/09/24 11:41 Oxygen Delivery Method Room Air 08/09/24 11:41 BMI result Body Mass Index 29.6 General: Non-toxic, NAD. Speaking full sentences. Skin: Warm dry throughout Eye: EOMI HENT: Airway patent. Uvula midline. No pharyngeal erythema or edema. No [employer]BER [employer]. Bilateral canals clear. TM non-erythematous, non-bulging. No TM perforation or hemotympanum noted. Respiratory: +rhonchi bilaterally with decreased aeration LL lung. No rales or wheeze noted Cardiac: RRR. No murmur MSK: Full ROM extremities. Neurology: Alert. No aphasia or facial droop. Gait without abnormality Psych: Good mood and affect Assessment & Plan Assessment & Plan (1) Acute bacterial bronchitis: Code(s): J20.8 - Acute bronchitis due to other specified organisms; B96.89 - Other specified bacterial agents as the cause of diseases classified elsewhere Plan: Patient seen and evaluated. Non-toxic appearing Azithromycin and tessalon F/U with PCP Concerning signs of CP or SOB in relation to ER eval needed discussed with pt Patient gave verbal understanding and had no additional questions or concerns at time of discharge All questions answered Medications: New benzonatate 200 mg PO BID-TID PRN 14 caps 0RF cough azithromycin For 250 mg dose pack: take 500 mg today (day 1), then 250 mg for 4 days (days 2-5) PO 6 tabs 0RF Coding Level of Care Code Est Pt Level 3 (67538) Diagnoses Acute bacterial bronchitis J20.8; B96.89
== END 2024-08-09 11:55 | disposition home or self-care (01) ==
PROVIDERS: PCP Internal Medicine; Visit Provider Physician Assistant
DX: J20.8 Acute bronchitis due to other specified organisms (principal); B96.89 Other specified bacterial agents as the cause of diseases classified elsewhere

== ENCOUNTER → 2024-08-09 10:24 | Outpatient (BNVA) | payer MEDICARE, SELFPAY | PROVIDERS: PCP Internal Medicine; Visit Provider Physician Assistant | DX: J20.8 Acute bronchitis due to other specified organisms (principal); B96.89 Other specified bacterial agents as the cause of diseases classified elsewhere | CPT/HCPCS: 99212 ==

== ENCOUNTER 2024-08-15 14:24 | Outpatient (AMB) | payer MEDICARE, SELFPAY ==
--- NOTE | 2024-08-15 14:27 | AM.OFFWIN_ITS ---
Intake Vital Signs 08/15/24 14:28 Height 5 ft 10 in Weight 206 lb BMI 29.6 BP 118/68 Blood Pressure Location Lt brachial Position Sitting Pulse 95 Pulse Source Pulse Oximeter Pulse Oximetry (%) 97 Oxygen Delivery Method Room Air Intake Visit Reasons: EP chest congestion, SOB Intake Note: Pt is here today for a walk in visit. Pt c/o cough, congestion sob. Pt states that he was seen already for the same symptoms and he finished Zpak and Benzonatate. Pt states that he gets SOB and his chest congestion is getting worst. Patient Tobacco Use Status: Never used Tobacco Allergies No Known Allergies [No Known Allergies*] Allergy (Verified 08/15/24 14:32) HPI HPI Comments History of Present Illness Details History - The patient is a 79-year-old male pres enting with persistent cough, shortness of breath, and possible fluid accumulation in the ear. - Diagnosed with bronchitis, with some i mprovement noted, although persistent symptoms remain. - Reports persistency in shortness of br eath, particularly impacting the left side. - Coughing reduced but was initially a s ignificant symptom. - Denies recent tests for flu, COVID-19, and RSV. - Observations suggest potential pneumon ia; further investigation with a chest X-ray was recommended. - Ears reported as feeling fluid-laden; Flonase nasal spray was advised for possible sinus congestion. Physical Exam General: Cooperative, healthy appearing, comfortable and no acute distress Orientation/consciousness: Patient oriented x3 Limitations: No limitations Head: Normal to inspection Ears: Hearing grossly normal bilaterally, external ears normal and TM's with fluid, no infection bilaterally Nose: Normal external nose present, Normal nares present and No nasal discharge present Face and sinus: Normal facial exam and Yes sinuses nontender Mouth: Normal oral and palatal mucosa present and moist mucous membranes Throat: Yes tonsils normal, Yes uvula midline. Posterior oropharynx erythema Eyes: Appearance normal, both eyes and all related structures Neck: Normal visual inspection Respiratory: Clear to auscultation bilaterally. Normal respiratory effort, able to speak in complete sentences, no respiratory distress, not tachypneic, no tripod positioning and no use of accessory muscles, but a little wheezy in the right upper lobe Cardiovascular: Regular rate and rhythm. Normal S1 and S2 Skin: No rashes or lesions noted Neuro: Patient oriented x3 Extremities: Normal to inspection and Yes no clubbing, cyanosis or edema [facility] Medical History (Updated 08/09/24 @ 11:55 by Cassandra Mccullough PA-C) Hyperglycemia Fatty liver BPH (benign prostatic hyperplasia) Gout Rotator cuff disorder CKD (chronic kidney disease), stage III Melanoma Hypercholesterolemia Hypertension Surgical History H/O colonoscopy Melanoma of back History of ankle surgery History of knee surgery Family History Father Cerebral aneurysm Mother No problems noted. Son No problems noted. Daughter No problems noted. Social History Household Members: Spouse Housing: House Alcohol intake: current Alcohol intake frequency: a few times a week Patient Tobacco Use Status: Never used Tobacco e-Cigarette/Vaping Use: Never Used Current occupational status: retired Cognitive needs: No Hearing needs: No Vision needs: Yes Review of Systems Const All systems reviewed & are unremarkable except as noted in HPI and below Physical Exam Vital Signs: Last Vital Signs Pulse 95 08/15/24 14:28 BP 118/68 08/15/24 14:28 Pulse Ox 97 08/15/24 14:28 Oxygen Delivery Method Room Air 08/15/24 14:28 BMI result Body Mass Index 29.6 Assessment & Plan Assessment & Plan (1) Acute bacterial bronchitis: Code(s): J20.8 - Acute bronchitis due to other specified organisms; B96.89 - Other specified bacterial agents as the cause of diseases classified elsewhere Plan: Plan The patient will undergo a chest X-ray to assess for pneumonia due to ongoing respiratory symptoms. A prednisone taper is prescribed to alleviate bronchial inflammation and improve breathing. The patient is advised to use Flonase nasal spray for potential sinus congestion. Prednisone should be taken in the morning to prevent sleep disturbances. If pneumonia is confirmed by imaging, Z-Marcus antibiotics may be started to address potential bacterial infection. The treatment plan aims at reducing symptoms and ruling out further complications from existing conditions. Patient was informed and verbally consented to the use of an ambient scribe for clinic note documentation during this visit Orders: Orders XR chest 2V Today R05.9 - Cough, unspecified Medications: New methylprednisolone PO PER PKG DIR for 6 days 21 ea 0RF Coding Level of Care Code Est Pt Level 4 (912[address]) Diagnoses Acute bacterial bronchitis J20.8; B96.89
[2024-08-15 14:28] VITALS: BP 118/68; PULSE 95; O2SAT 97; BMI 29.6
== END 2024-08-15 14:55 | disposition home or self-care (01) ==
PROVIDERS: PCP Internal Medicine; Visit Provider Physician Assistant
DX: J20.8 Acute bronchitis due to other specified organisms (principal); B96.89 Other specified bacterial agents as the cause of diseases classified elsewhere

== ENCOUNTER → 2024-08-15 14:24 | Outpatient (BNVA) | payer MEDICARE, SELFPAY | PROVIDERS: PCP Internal Medicine; Visit Provider Physician Assistant | DX: J20.8 Acute bronchitis due to other specified organisms (principal); B96.89 Other specified bacterial agents as the cause of diseases classified elsewhere | CPT/HCPCS: 99212 ==

== ENCOUNTER 2024-08-25 11:11 | Outpatient (REF) | payer MEDICARE, SELFPAY ==
--- NOTE | ~2024-08-25 | XR_ITS ---
EXAMINATION: XR CHEST CLINICAL INFORMATION: R05.9 - Cough, unspecified COMPARISON: None available. TECHNIQUE: 2 views of the chest were obtained. FINDINGS: The cardiac, hilar, and mediastinal contours are normal. Aorta is calcified but normal in contour. The lungs are clear bilaterally. There is no pneumothorax or pleural effusion. There is no focal osseous or soft tissue abnormality. Mildly exaggerated thoracic kyphosis with associated spondylosis. Reverse right shoulder arthroplasty without complication. Degenerative changes left shoulder joint. XR/XR chest 2V IMPRESSION: No active pulmonary disease. Electronically signed by: Shayan Helm MD 08/25/2024 11:36 AM EST
== END 2024-08-25 11:12 | disposition home or self-care (01) ==
LOC: HO.HMGCX 11:11
PROVIDERS: PCP Internal Medicine; Visit Provider Physician Assistant
DX: R05.9 Cough, unspecified (principal)
CPT/HCPCS: 71046

== ENCOUNTER → 2024-08-25 11:18 | Outpatient (BNV) | payer MEDICARE, SELFPAY | PROVIDERS: PCP Internal Medicine; Visit Provider Radiology Diagnostic Radiology | DX: R05.9 Cough, unspecified (principal) | CPT/HCPCS: 71046 ==

== ENCOUNTER 2024-08-26 11:01 | Outpatient (AMB) | payer MEDICARE, SELFPAY ==
[2024-08-26 11:35] VITALS: BP 136/78; PULSE 111; TEMP 36.8; O2SAT 94
--- NOTE | 2024-08-26 11:35 | MHC.OFFWIV ---
Intake Vital Signs 08/26/24 11:35 Weight 92.533 kg BP 136/78 Blood Pressure Location Lt brachial Position Sitting Pulse 111 H Pulse Source Pulse Oximeter Temp 98.3 F Temp Source Oral Pulse Oximetry (%) 94 Oxygen Delivery Method Room Air Intake Visit Reasons: EP chest congestion Intake Note: Patient here for chest congestion that has been present for 3 weeks. Patient Tobacco Use Status: Never used Tobacco Allergies No Known Allergies [No Known Allergies*] Allergy (Verified 08/26/24 11:39) Do you need a note to return to daycare/school/sports/work: No HPI HPI Comments History of Present Illness Details 79 yo m presents w/ upper repsiratory sx x 3 weeks. Reports he has a productive cough of thick sputum that doesnt seem to be going away. Recently completed a round of antibiotics ( Z pack) w/o much improvment. Reports he had an xray done which was unremarkable. Despite all this sx continue Hx and pe concerning for bronchitis. Unlikely PE, PNA, ACS, ARDS, pneumothorax plan doxycycline will treat as bronchitis. Will add prednisone. Advised to return w/ new or worsening sx. [facility], [facility] Medical History Hyperglycemia Fatty liver BPH (benign prostatic hyperplasia) Gout Rotator cuff disorder CKD (chronic kidney disease), stage III Melanoma Hypercholesterolemia Hypertension Surgical History H/O colonoscopy Melanoma of back History of ankle surgery History of knee surgery Family History Father Cerebral aneurysm Mother No problems noted. Son No problems noted. Daughter No problems noted. Social History Household Members: Spouse Housing: House Alcohol intake: current Alcohol intake frequency: a few times a week Patient Tobacco Use Status: Never used Tobacco e-Cigarette/Vaping Use: Never Used Current occupational status: retired Cognitive needs: No Hearing needs: No Vision needs: Yes Review of Systems Const All systems reviewed & are unremarkable except as noted in HPI and below Physical Exam Vital Signs: Last Vital Signs Temp 98.3 F 08/26/24 11:35 Pulse 111 H 08/26/24 11:35 BP 136/78 08/26/24 11:35 Pulse Ox 94 08/26/24 11:35 Oxygen Delivery Method Room Air 08/26/24 11:35 vss Appearance: Alert.? Oriented X3.? No acute distress.? Head: Normocephalic, atraumatic, no step-offs or deformities Eyes: Pupils equal, round and reactive to light.? Neck: Normal inspection.? Neck supple.? CVS: Normal heart rate and rhythm.? Pulses normal.? Respiratory: No respiratory distress.? Breath sounds normal.? Abdomen: Soft and nontender.? Skin: Skin warm and dry.? Normal skin color.? Normal skin turgor.? Extremities: No lower extremity edema.? No calf ttp. 5/5 strength to bilateral upper and lower extremities Neuro: Oriented X 3.? No motor deficit.? No sensory deficit. CN 2-12 intact Assessment & Plan Assessment & Plan (1) Bronchitis: Code(s): J40 - Bronchitis, not specified as acute or chronic Plan Take your medications as prescribed. If you were prescribed antibiotics today, it is important that you take your medication to their entirety, do not skip any doses, do not finish them early. Follow-up with your primary care provider this week. Return to the emergency department with new or worsening symptoms. In case of emergency call 911 Coding Level of Care Code Est Pt Level 3 (80325) Diagnoses Bronchitis J40
== END 2024-08-26 12:37 | disposition home or self-care (01) ==
PROVIDERS: PCP Internal Medicine; Visit Provider Physician Assistant
DX: J40 Bronchitis, not specified as acute or chronic (principal)

== ENCOUNTER → 2024-08-26 11:01 | Outpatient (BNVA) | payer MEDICARE, SELFPAY | PROVIDERS: PCP Internal Medicine; Visit Provider Physician Assistant | DX: J40 Bronchitis, not specified as acute or chronic (principal) | CPT/HCPCS: 99212 ==

== ENCOUNTER 2025-01-09 11:18 | Outpatient (REF) | payer MEDICARE, SELFPAY ==
[2025-01-09 13:57] LABS: Uric Acid 4.7 mg/dL (3.4-7.0)
== END 2025-01-09 11:19 | disposition home or self-care (01) ==
LOC: HO.HMGCLDS 11:18
PROVIDERS: PCP Internal Medicine; Visit Provider Student in an Organized Health Care Education/Training Program
DX: M1A.09X1 Idiopathic chronic gout, multiple sites, with tophus (tophi) (principal)
CPT/HCPCS: 36415; 84550

== ENCOUNTER 2025-02-16 10:04 | Outpatient (AMB) | payer MEDICARE, SELFPAY ==
--- NOTE | 2025-02-16 10:13 | A.OFFPC_ITS ---
Vital Signs 02/16/25 10:14 Height 5 ft 10 in Weight 206 lb BMI 29.6 BP 110/70 Blood Pressure Location Rt brachial Position Sitting Pulse 94 Pulse Source Pulse Oximeter Temp 98.3 F Temp Source Oral Pulse Oximetry (%) 96 Oxygen Delivery Method Room Air Intake Visit Reasons: annual exam Intake Note: Pt is here today for PE. Allergies No Known Allergies (No Known Allergies*) Allergy (Verified 02/16/25 10:15) Medication List - Last Reconciled 02/16/25 by Jodi Roland MD albuterol sulfate 90 mcg/actuation 2 puffs inhalation Q6H PRN allopurinol 300 mg PO DAILY alpha lipoic acid 600 mg PO DAILY 30 days aspirin 81 mg PO DAILY finasteride 5 mg PO DAILY 90 days ibuprofen 800 mg PO BID lisinopril 10 mg PO DAILY omega 1-thw-tzk-fish oil 60-90-500 mg (Fish Oil) 1 cap PO DAILY simvastatin 40 mg PO DAILY Tobacco use date assessed: 02/16/25 Fall risk assessment: No Falls in past year Last assessed Fall Risk: 02/16/25 Dental Screening Dental Screen Date: 02/16/25 Did you have a dental visit in the last 12 months?: Yes Did you have a dental problem in the last 6 months where you did not have access to dental care?: No Was dental information given to patient?: Patient has dentist HPI annual exam HPI Details Pt presents for PE. PFSH Medical History Hyperglycemia Fatty liver BPH (benign prostatic hyperplasia) Gout Rotator cuff disorder CKD (chronic kidney disease), stage III Melanoma Hypercholesterolemia Hypertension Surgical History Hx of shoulder surgery H/O colonoscopy Melanoma of back History of ankle surgery History of knee surgery Family History Father Cerebral aneurysm Mother No problems noted. Son No problems noted. Daughter No problems noted. Social History Household Members: Spouse Housing: House Alcohol intake: current Alcohol intake frequency: a few times a week Patient Tobacco Use Status: Never used Tobacco e-Cigarette/Vaping Use: Never Used service: Yes Current occupational status: retired Cognitive needs: No Hearing needs: No Vision needs: Yes Questionnaire PHQ-9 Over the last 2 weeks, how often have you been bothered by any of the following problems? 1. Little interest or pleasure in doing things: not at all 2. Feeling down, depressed, or hopeless: not at all 3. Trouble falling or staying asleep, or sleeping too much: not at all 4. Feeling tired or having little energy: not at all 5. Poor appetite or overeating: not at all 6. Feeling bad about yourself - or that you are a failure or have let yourself or your family down: not at all 7. Trouble concentrating on things, such as reading the newspaper or watching television: not at all 8. Moving or speaking so slowly that other people could have noticed. Or the opposite - being so fidgety or restless that you have been moving around a lot more than usual: not at all 9. Thoughts that you would be better off or of hurting yourself in some way: not at all Total score: 0 Depression Screening Interpretation: Negative Depression Screening Done: Yes 11307 - PHQ-9 Billing: Yes Source: Developed by Drs. Scottie You, Kassy Wells, Tyrese Buckner and colleagues, with an educational nany from [employer]. Thrive Questionnaire Date Thrive assessed: 02/16/25 I am a: Patient What is your living situation today?: I have a steady place to live Within the past 12 months, did the food you bought not last and you didn't have the money to get more?: Never true Within the past 12 months, did you worry whether your food would run out before you got money to buy more?: Never true Do you have trouble paying for medicines?: No Do you have trouble getting transportation to medical appointments?: No Do you have trouble paying your heating and electricity bill?: No Do you have trouble taking care of your child, family member or friend?: No Do you have trouble with day-to-day activities such as bathing, preparing meals, shopping, managing finances, etc.?: No Are you currently unemployed and looking for a job?: No Are you interested in more education?: No Please select the resources that you would like help with: None THRIVE Score: 0 AUDIT C Alcohol Use Questionnaire (AUDIT-C) 1. How often do you have a drink containing alcohol?: Monthly or less 2. How many drinks containing alcohol do you have on a typical day when you are drinking?: 1 or 2 3. How often do you have six or more drinks on one occasion?: Never Total Score: 1 LINDEN-7 AMB Questionnaire LINDEN-7 Date LINDEN - 7 assessed: 02/16/25 Feeling nervous, anxious, or on edge: 0 = Not at all Not being able to stop or control worryin = Not at all Worrying too much about different things: 0 = Not at all Trouble relaxin = Not at all Being so restless that it is hard to sit still: 0 = Not at all Becoming easily annoyed or irritable: 0 = Not at all Feeling afraid as if something awful might happen: 0 = Not at all Total LINDEN-7 score (0-4 normal; 5-9 mild; 10-14 moderate; 15-21 severe): 0 Source: Developed by Drs. Scottie You, Kassy Wells, Tyrese Buckner and colleagues, with an educational nany from [employer]. LINDEN-7 Assessment Billing LINDEN-7 Assessment Tool: LINDEN-7 Assessment 78351 Review of Systems Const All systems reviewed & are unremarkable except as noted in HPI and below Eyes Reports no additional complaints ENT Reports no additional complaints Card Reports no additional complaints Resp Reports no additional complaints GI Reports no additional complaints Reports no additional complaints Physical exam (Primary Care) Vital Signs: Last Vital Signs Temp 98.3 F 02/16/25 10:14 Pulse 94 02/16/25 10:14 BP 110/70 02/16/25 10:14 Pulse Ox 96 02/16/25 10:14 Oxygen Delivery Method Room Air 02/16/25 10:14 BMI result Body Mass Index 29.6 Tobacco/Smoking Status: Tobacco use Status Tobacco use date assessed 02/16/25 02/16/25 10:19 Patient Tobacco Use Status Never used Tobacco 02/16/25 10:19 e-Cigarette/Vaping Use Never Used 02/16/25 10:19 PHQ-9: PHQ-9 Score PHQ-9: Total score 0 02/16/25 10:21 Depression Screening Interpretation: Negative Thrive Assessment: Date of Thrive Assessment Date Thrive assessed 02/16/25 02/16/25 10:21 Const General: no acute distress HENMT Head: Yes normal to inspection Ears: hearing grossly normal bilaterally Face and sinus: Yes normal facial exam Mouth: Normal oral and palatal mucosa present Eyes General: appearance normal, both eyes and all related structures Neck Neck: Yes no lymphadenopathy and Yes supple Resp Effort & Inspection: normal respiratory effort Auscultation: clear to auscultation bilaterally Cardio Rhythm: regular rhythm Heart sounds: S1 normal heart sound present and S2 normal heart sound present GI Inspection: Yes normal to inspection Palpation (GI): Soft to palpation Percussion: Yes normal to percussion Auscultation: normal bowel sounds Extrem General: Yes no clubbing, cyanosis or edema Coding Level of Care Code Est Pt Prev Care >65y(32302) Diagnoses Hypercholesterolemia E78.00 CKD (chronic kidney disease), stage III N18.30 Hyperglycemia R73.9 Hypertension I10 Benign prostatic hyperplasia with weak urinary stream N40.1; R39.12 Lower urinary tract symptom presence: symptoms present Lower urinary tract symptom detail: weak urinary stream Annual physical exam Z00.00 Additional Codes LINDEN-7 Assessment Billing - LINDEN-7 Assessment Tool: LINDEN-7 Assessment 76210 ([id number]) PHQ-9 - 67350 - PHQ-9 Billing: Yes ([id number]) Assessment & Plan Assessment & Plan (1) Hypercholesterolemia: Code(s): E78.00 - Pure hypercholesterolemia, unspecified Category: Medical Plan: Continue statin (2) CKD (chronic kidney disease), stage III: Code(s): N18.30 - Chronic kidney disease, stage 3 unspecified Category: Medical Plan: Avoid nephrotoxins monitor renal function (3) Hyperglycemia: Comment: A1C 5.9 02/22 Code(s): R73.9 - Hyperglycemia, unspecified Category: Medical Plan: Patient will return for fasting blood work including A1c, ADA diet increase exercise discussed with the patient (4) Hypertension: Code(s): I10 - Essential (primary) hypertension Category: Medical Plan: Continue lisinopril (5) BPH (benign prostatic hyperplasia): Comment: Dr. Prather Code(s): N40.0 - Benign prostatic hyperplasia without lower urinary tract symptoms Category: Medical Qualifiers: Lower urinary tract symptom presence: symptoms present Lower urinary tract symptom detail: weak urinary stream Qualified Code(s): N40.1 - Benign prostatic hyperplasia with lower urinary tract symptoms; R39.12 - Poor urinary stream Plan: Continue finasteride follow-up with Urology (6) Annual physical exam: Code(s): Z00.00 - Encounter for general adult medical examination without abnormal findings Category: Medical Plan: Well-balanced diet regular physical activity discussed with the patient , follow-up in 4 months with a fasting labs before Orders: Orders Comprehensive Adrian. Panel Fast Today E78.00 - Pure hypercholesterolemia, unspecified, N18.30 - Chronic kidney disease, stage 3 unspecified, R73.9 - Hyperglycemia, unspecified Complete Blood Count Auto Diff Today E78.00 - Pure hypercholesterolemia, unspecified, N18.30 - Chronic kidney disease, stage 3 unspecified, R73.9 - Hyperglycemia, unspecified Hemoglobin A1c Today E78.00 - Pure hypercholesterolemia, unspecified, N18.30 - Chronic kidney disease, stage 3 unspecified, R73.9 - Hyperglycemia, unspecified Lipid Panel Today E78.00 - Pure hypercholesterolemia, unspecified, N18.30 - Chronic kidney disease, stage 3 unspecified, R73.9 - Hyperglycemia, unspecified Microalbumin, Random (w Creat) Today E78.00 - Pure hypercholesterolemia, unspecified, N18.30 - Chronic kidney disease, stage 3 unspecified, R73.9 - Hyperglycemia, unspecified Hemoglobin A1c 4 Months E78.00 - Pure hypercholesterolemia, unspecified, I10 - Essential (primary) hypertension, N18.30 - Chronic kidney disease, stage 3 unspecified, R73.9 - Hyperglycemia, unspecified Comprehensive Adrian. Panel Fast 4 Months E78.00 - Pure hypercholesterolemia, unspecified, I10 - Essential (primary) hypertension, N18.30 - Chronic kidney disease, stage 3 unspecified, R73.9 - Hyperglycemia, unspecified
[2025-02-16 10:14] VITALS: BP 110/70; PULSE 94; TEMP 36.8; O2SAT 96; BMI 29.6
== END 2025-02-16 11:15 | disposition home or self-care (01) ==
LOC: HO.HMCC 10:05
PROVIDERS: PCP Internal Medicine; Visit Provider Internal Medicine
DX: E78.00 Pure hypercholesterolemia, unspecified (principal); N18.30 Chronic kidney disease, stage 3 unspecified; R73.9 Hyperglycemia, unspecified; I10 Essential (primary) hypertension; N40.1 Benign prostatic hyperplasia with lower urinary tract symptoms; R39.12 Poor urinary stream; Z00.00 Encounter for general adult medical examination without abnormal findings; Z23 Encounter for immunization

== ENCOUNTER → 2025-02-16 10:04 | Outpatient (BNVA) | payer MEDICARE, SELFPAY | PROVIDERS: PCP Internal Medicine; Visit Provider Internal Medicine | DX: Z00.00 Encounter for general adult medical examination without abnormal findings (principal); E78.00 Pure hypercholesterolemia, unspecified; I12.9 Hypertensive chronic kidney disease with stage 1 through stage 4 chronic kidney disease, or unspecified chronic kidney disease; N18.30 Chronic kidney disease, stage 3 unspecified; R73.9 Hyperglycemia, unspecified; N40.1 Benign prostatic hyperplasia with lower urinary tract symptoms; R39.12 Poor urinary stream; Z23 Encounter for immunization | CPT/HCPCS: 90471; 90677; 96127; 99397 ==

== ENCOUNTER 2025-04-19 09:09 | Outpatient (REF) | payer MEDICARE, SELFPAY ==
[2025-04-19 11:11] LABS: PSA,Total (Free>4and<10) 1.93 ng/mL (0.00-4.00)
== END 2025-04-19 09:10 | disposition home or self-care (01) ==
LOC: HO.HMGCLDS 09:09
PROVIDERS: PCP Internal Medicine; Visit Provider Urology
DX: R97.20 Elevated prostate specific antigen [PSA] (principal); Z12.5 Encounter for screening for malignant neoplasm of prostate
CPT/HCPCS: 36415; 84153

== ENCOUNTER 2025-04-28 11:15 | Outpatient (AMB) | payer MEDICARE, SELFPAY ==
--- NOTE | 2025-04-28 11:18 | A.OFFVIS_ITS ---
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 He is a patient of Dr. Roland. He is seen for the following urologic conditions. - lower urinary tract symptoms - elevated PSA Yearly follow-up PSA remains well-controlled Continue finasteride Prior biopsy 2004 Large prostate on exam Elevated PSA/Abnormal JOSIAS: He presents for Further evaluation for elevated PSA Large prostate on exam Has had elevated PSA he says for around 20 years. Current management is observation. Laboratory investigations include a total PSA evaluation for September 2014 4.8, January 2015 3.6, October 2016 5.6, 05/19 4.8, 11/18 4.6, 11/19 4.7, 11/20 5.6, 12/21 7.3, 04/23 2.7, 10/22 2.8, 04/24 3.3, 10/23 2.4, 04/25 2/4, 10/24 1.8, 04/26 1.7. 04/27 1.9 Individualized Prostate Cancer Risk Calculator 5-10% high risk, Would like to continue with observation and understands and accepts the risks of a possible delay in diagnosis. Symptoms include incomplete emptying, intermittency, and are stable. Therapeutic plan - 12m f/u PSA PFSH Medical History Hyperglycemia Fatty liver BPH (benign prostatic hyperplasia) Gout Rotator cuff disorder CKD (chronic kidney disease), stage III Melanoma Hypercholesterolemia Hypertension Surgical History Hx of shoulder surgery H/O colonoscopy Melanoma of back History of ankle surgery History of knee surgery Family History Father Cerebral aneurysm Mother No problems noted. Son No problems noted. Daughter No problems noted. Social History Household Members: Spouse Housing: House Alcohol intake: current Alcohol intake frequency: a few times a week Patient Tobacco Use Status: Never used Tobacco e-Cigarette/Vaping Use: Never Used service: Yes Current occupational status: retired Cognitive needs: No Hearing needs: No Vision needs: Yes Review of Systems Const Denies chills and Denies fever(s) Card Reports no additional complaints and Denies syncope Resp Denies cough GI Denies abdominal pain and Denies heartburn Reports as per HPI and Denies change in libido Neuro Denies syncope Psych Denies change in libido Endo Denies change in libido Physical Exam Const General: cooperative, healthy appearing, comfortable and no acute distress Orientation/consciousness: patient oriented x3 HEENT Face and sinus: Yes normal facial exam Mouth: moist mucous membranes Neck Neck: Yes normal visual inspection, Yes full ROM and Yes trachea midline Chest Chest palpation & inspection: normal inspection of the chest Resp Effort & Inspection: normal respiratory effort, able to speak in complete sentences and no respiratory distress GI Inspection: Yes normal to inspection Back/Spine/Pelvis Cervical Spine: normal cervical lordosis Thoracic/Lumbar Spine: thoracic and lumbar spine normal to inspection Skin General skin exam: no rashes or lesions noted Neuro General: patient oriented x3, gait normal, tone normal and moves all extremities Extrem General: Yes normal to inspection and Yes capillary refill normal Assessment & Plan Assessment & Plan (1) BPH (benign prostatic hyperplasia): Comment: Dr. Prather Code(s): N40.0 - Benign prostatic hyperplasia without lower urinary tract symptoms Category: Medical Qualifiers: Lower urinary tract symptom presence: symptoms present Lower urinary tract symptom detail: weak urinary stream Qualified Code(s): N40.1 - Benign prostatic hyperplasia with lower urinary tract symptoms; R39.12 - Poor urinary stream (2) Elevated PSA: Code(s): R97.20 - Elevated prostate specific antigen [PSA] Category: Medical Plan Twelve month follow-up PSA office Orders: Orders Prostate Specific Antigen 12 Months R97.20 - Elevated prostate specific antigen [PSA] Medications: Refilled finasteride 5 mg PO DAILY 90 tabs 3RF 90 days N13.8 - Other obstructive and reflux uropathy, N40.1 - Benign prostatic hyperplasia with lower urinary tract symptoms, R97.20 - Elevated prostate specific antigen [PSA] Patient Instructions: This note is constructed using voice recognition software. While every effort has been made to ensure accuracy planer tailer errors may have been included. Imaging studies, laboratory and physical exam results were discussed and reviewed in detail. No major barriers to patient understanding were identified. An opportunity to ask questions regarding the treatment plan was provided. All questions were answered. The patient expressed understanding and agreement with the above treatment plan. The patient is aware they should contact our office by phone for worsening of their current condition or the appearance of new urologic symptoms. Compliance is encouraged with any medications and followup testing that is ordered. It is a privilege to participate in the urologic care of your patient. If you have any questions or concerns regarding treatment for the above conditions, or other urologic issues, please do not hesitate to contact me. The office telephone contact is [phone]. Sincerely, Dr Stuart Prather MD, [facility] - Urology Compassionate Specialist Care for the Genitourinary System Coding Level of Care Code Est Pt Level 4 (02351) Complex EM visit Add On G2211 Diagnoses Benign prostatic hyperplasia with weak urinary stream N40.1; R39.12 Lower urinary tract symptom presence: symptoms present Lower urinary tract symptom detail: weak urinary stream Elevated PSA R97.20
== END 2025-04-28 11:48 | disposition home or self-care (01) ==
LOC: HO.HUSH 11:15
PROVIDERS: PCP Internal Medicine; Visit Provider Urology
DX: N40.1 Benign prostatic hyperplasia with lower urinary tract symptoms (principal); R39.12 Poor urinary stream; R97.20 Elevated prostate specific antigen [PSA]; Z13.9 Encounter for screening, unspecified
CPT/HCPCS: 99214; G2211

== ENCOUNTER → 2025-04-28 11:15 | Outpatient (BNVA) | payer MEDICARE, SELFPAY | PROVIDERS: PCP Internal Medicine; Visit Provider Urology | DX: N40.1 Benign prostatic hyperplasia with lower urinary tract symptoms (principal); R39.12 Poor urinary stream; R97.20 Elevated prostate specific antigen [PSA] | CPT/HCPCS: 51798; 81003; 99212 ==

== ENCOUNTER 2025-06-15 08:37 | Outpatient (REF) | payer MEDICARE, SELFPAY ==
[2025-06-15 10:25] LABS: MANUAL DIFF FLAG NO
[2025-06-15 10:39] LABS: Hematocrit 47.1 % (42.0-52.0); Hemoglobin 15.5 g/dl (14.0-18.0); Imm Gran Abs Auto 0.08 X10*3/uL (0.00-0.03); Imm Gran Pct Auto 0.7 % (0.0-0.4); Lymphocytes Absolute Auto 4.8 X10*3/uL (1.2-4.9); Mean Corpuscular HGB Conc 32.9 g/dl (31.0-36.0); Mean Corpuscular Hemoglobin 29.9 pg (27.0-33.0); Mean Corpuscular Volume 90.8 fL (80.0-98.0); NRBC Abs Auto 0.000 X10*3/uL (0.0-0.012); NRBC Pct Auto 0.0 /100WBC (0.0-0.2); Platelet Count 143 X10*3/uL (160-400); Red Blood Count 5.19 X10*6/uL (4.60-5.80); White Blood Count 11.2 X10*3/uL (4.8-10.8)
[2025-06-15 11:14] LABS: Alanine Aminotransferase 38 U/L (0-40); Albumin Level 4.4 g/dL (3.5-5.0); Alkaline Phosphatase 81 U/L (39-117); Anion Gap 13 (12-20); Aspartate Amino Transferase 53 U/L (5-37); Blood Urea Nitrogen 31 mg/dL (9-16); Calcium 9.4 mg/dL (8.4-10.2); Carbon Dioxide 22 mmol/L (22-29); Chloride 110 mmol/L (96-108); Cholesterol 203 mg/dL (<200); Estimated Glomerular Filt Rate 60; HDL Cholesterol 54 mg/dL (>40); Potassium 4.8 mmol/L (3.3-5.1); Sodium 140 mmol/L (135-145); Total Protein 7.1 g/dL (6.5-8.0); Triglycerides 257 mg/dL (<150)
== END 2025-06-15 08:38 | disposition home or self-care (01) ==
LOC: HO.HMGCLDS 08:37
PROVIDERS: PCP Internal Medicine; Visit Provider Internal Medicine
DX: I12.9 Hypertensive chronic kidney disease with stage 1 through stage 4 chronic kidney disease, or unspecified chronic kidney disease (principal); N18.30 Chronic kidney disease, stage 3 unspecified; R73.9 Hyperglycemia, unspecified; E78.00 Pure hypercholesterolemia, unspecified
CPT/HCPCS: 36415; 80053; 80061; 83036; 85025

== ENCOUNTER 2025-06-20 09:51 | Outpatient (AMB) | payer MEDICARE, SELFPAY ==
[2025-06-20 09:59] VITALS: BP 124/68; PULSE 86; RESP 15; TEMP 36.8; O2SAT 95; BMI 29.4
--- NOTE | 2025-06-20 09:59 | A.OFFPC_ITS ---
Vital Signs 06/20/25 09:59 Height 5 ft 10 in Weight 205 lb BMI 29.4 BP 124/68 Blood Pressure Location Rt brachial Position Sitting Respiration 15 Pulse 86 Pulse Source Pulse Oximeter Temp 98.2 F Temp Source Oral Pulse Oximetry (%) 95 Oxygen Delivery Method Room Air Intake Visit Reasons: 4m f/u Intake Note: Pt is here today for 4 months follow up visit on labs. Pt states that he has neuropathy in his feet. Allergies No Known Allergies (No Known Allergies*) Allergy (Verified 06/20/25 10:04) Medication List - Last Reconciled 06/20/25 by Jodi Roland MD albuterol sulfate 90 mcg/actuation 2 puffs inhalation Q6H PRN allopurinol 300 mg PO DAILY alpha lipoic acid 600 mg PO DAILY 30 days aspirin 81 mg PO DAILY finasteride 5 mg PO DAILY 90 days ibuprofen 800 mg PO BID lisinopril 10 mg PO DAILY omega [id number]-ybl-[id number]-fish oil 60-90-500 mg (Fish Oil) 1 cap PO DAILY simvastatin 40 mg PO DAILY Tobacco use date assessed: 06/20/25 Fall risk assessment: No Falls in past year Last assessed Fall Risk: 06/20/25 Dental Screening Dental Screen Date: 02/16/25 HPI 4m f/u HPI Details Pt presents for f/u HTN, hyperlipid, BPH, stable on meds PFSH Medical History Hyperglycemia Fatty liver BPH (benign prostatic hyperplasia) Gout Rotator cuff disorder CKD (chronic kidney disease), stage III Melanoma Hypercholesterolemia Hypertension Surgical History Hx of shoulder surgery H/O colonoscopy Melanoma of back History of ankle surgery History of knee surgery Family History Father Cerebral aneurysm Mother No problems noted. Son No problems noted. Daughter No problems noted. Social History Household Members: Spouse Housing: House Alcohol intake: current Alcohol intake frequency: a few times a week Patient Tobacco Use Status: Never used Tobacco e-Cigarette/Vaping Use: Never Used service: Yes Current occupational status: retired Cognitive needs: No Hearing needs: No Vision needs: Yes Questionnaire PHQ-9 Over the last 2 weeks, how often have you been bothered by any of the following problems? 1. Little interest or pleasure in doing things: not at all 2. Feeling down, depressed, or hopeless: not at all 3. Trouble falling or staying asleep, or sleeping too much: not at all 4. Feeling tired or having little energy: not at all 5. Poor appetite or overeating: not at all 6. Feeling bad about yourself - or that you are a failure or have let yourself or your family down: not at all 7. Trouble concentrating on things, such as reading the newspaper or watching television: not at all 8. Moving or speaking so slowly that other people could have noticed. Or the opposite - being so fidgety or restless that you have been moving around a lot more than usual: not at all 9. Thoughts that you would be better off or of hurting yourself in some way: not at all Total score: 0 Depression Screening Interpretation: Negative Depression Screening Done: Yes Source: Developed by Drs. Scottie You, Kassy Wells, Tyrese Buckner and colleagues, with an educational nany from [employer] Thrive Questionnaire Date Thrive assessed: 02/16/25 LINDEN-7 AMB Questionnaire LINDEN-7 Date LINDEN - 7 assessed: 02/16/25 Feeling nervous, anxious, or on edge: 0 = Not at all Not being able to stop or control worryin = Not at all Worrying too much about different things: 0 = Not at all Trouble relaxin = Not at all Being so restless that it is hard to sit still: 0 = Not at all Becoming easily annoyed or irritable: 0 = Not at all Feeling afraid as if something awful might happen: 0 = Not at all Total LINDEN-7 score (0-4 normal; 5-9 mild; 10-14 moderate; 15-21 severe): 0 Source: Developed by Drs. Scottie You, Kassy Wells, Tyrese Buckner and colleagues, with an educational nany from [employer] Review of Systems Const All systems reviewed & are unremarkable except as noted in HPI and below Eyes Reports no additional complaints ENT Reports no additional complaints Card Reports no additional complaints Resp Reports no additional complaints GI Reports no additional complaints Reports no additional complaints Physical exam (Primary Care) Vital Signs: Last Vital Signs Temp 98.2 F 06/20/25 09:59 Pulse 86 06/20/25 09:59 Resp 15 06/20/25 09:59 BP 124/68 06/20/25 09:59 Pulse Ox 95 06/20/25 09:59 Oxygen Delivery Method Room Air 06/20/25 09:59 BMI result Body Mass Index 29.4 Tobacco/Smoking Status: Tobacco use Status Tobacco use date assessed 06/20/25 06/20/25 10:06 Patient Tobacco Use Status Never used Tobacco 06/20/25 10:06 e-Cigarette/Vaping Use Never Used 06/20/25 09:59 PHQ-9: PHQ-9 Score PHQ-9: Total score 0 06/20/25 10:12 Depression Screening Interpretation: Negative Thrive Assessment: Date of Thrive Assessment Date Thrive assessed 02/16/25 06/20/25 09:59 Const General: no acute distress HENMT Head: Yes normal to inspection Ears: TM's normal bilaterally General nose exam: Normal external nose present Face and sinus: Yes normal facial exam Mouth: Normal oral and palatal mucosa present Throat: Yes posterior oropharynx normal Eyes General: appearance normal, both eyes and all related structures Resp Effort & Inspection: normal respiratory effort Auscultation: clear to auscultation bilaterally Cardio Rhythm: regular rhythm Heart sounds: S1 normal heart sound present and S2 normal heart sound present GI Inspection: Yes normal to inspection Palpation (GI): Soft to palpation Percussion: Yes normal to percussion Auscultation: normal bowel sounds Coding Level of Care Code Est Pt Level 4 (15616) Diagnoses Hypertension I10 Hypercholesterolemia E78.00 CKD (chronic kidney disease), stage III N18.30 Hyperglycemia R73.9 Assessment & Plan Assessment & Plan (1) Hypertension: Code(s): I10 - Essential (primary) hypertension Category: Medical Plan: Continue lisinopril (2) Hypercholesterolemia: Code(s): E78.00 - Pure hypercholesterolemia, unspecified Category: Medical Plan: Continue statin (3) CKD (chronic kidney disease), stage III: Code(s): N18.30 - Chronic kidney disease, stage 3 unspecified Category: Medical Plan: Avoid nephrotoxins monitor renal function (4) Hyperglycemia: Comment: A1C 5.9 02/22 Code(s): R73.9 - Hyperglycemia, unspecified Category: Medical Plan: A1c is 6.3 ADA diet increase exercise weight loss discussed with the patient follow-up in 5 months with a fasting labs before Orders: Orders Comprehensive [place]. Panel Fast 5 Months E78.00 - Pure hypercholesterolemia, unspecified, I10 - Essential (primary) hypertension, N18.30 - Chronic kidney disease, stage 3 unspecified, R73.9 - Hyperglycemia, unspecified Complete Blood Count Auto Diff 5 Months E78.00 - Pure hypercholesterolemia, unspecified, I10 - Essential (primary) hypertension, N18.30 - Chronic kidney disease, stage 3 unspecified, R73.9 - Hyperglycemia, unspecified Lipid Panel 5 Months E78.00 - Pure hypercholesterolemia, unspecified, I10 - Essential (primary) hypertension, N18.30 - Chronic kidney disease, stage 3 unspecified, R73.9 - Hyperglycemia, unspecified Microalbumin, Random (w Creat) 5 Months E78.00 - Pure hypercholesterolemia, unspecified, I10 - Essential (primary) hypertension, N18.30 - Chronic kidney disease, stage 3 unspecified, R73.9 - Hyperglycemia, unspecified Hemoglobin A1c 5 Months E78.00 - Pure hypercholesterolemia, unspecified, I10 - Essential (primary) hypertension, N18.30 - Chronic kidney disease, stage 3 unspecified, R73.9 - Hyperglycemia, unspecified UA w Microscopic 5 Months E78.00 - Pure hypercholesterolemia, unspecified, I10 - Essential (primary) hypertension, N18.30 - Chronic kidney disease, stage 3 unspecified, R73.9 - Hyperglycemia, unspecified Medications: Refilled allopurinol 300 mg PO DAILY 90 tabs 3RF [id number] - Idiopathic chronic gout, multiple sites, with tophus (tophi)
== END 2025-06-20 10:43 | disposition home or self-care (01) ==
LOC: HO.HMCC 09:52
PROVIDERS: PCP Internal Medicine; Visit Provider Internal Medicine
DX: I10 Essential (primary) hypertension (principal); E78.00 Pure hypercholesterolemia, unspecified; N18.30 Chronic kidney disease, stage 3 unspecified; R73.9 Hyperglycemia, unspecified

== ENCOUNTER → 2025-06-20 09:51 | Outpatient (BNVA) | payer MEDICARE, SELFPAY | PROVIDERS: PCP Internal Medicine; Visit Provider Internal Medicine | DX: I12.9 Hypertensive chronic kidney disease with stage 1 through stage 4 chronic kidney disease, or unspecified chronic kidney disease (principal); N18.30 Chronic kidney disease, stage 3 unspecified; E78.00 Pure hypercholesterolemia, unspecified; R73.9 Hyperglycemia, unspecified | CPT/HCPCS: 96127; 99212 ==